=== PATIENT | female | born 1965 | race African-American/Black ===

== ENCOUNTER 2018-01-03 11:20 | Inpatient (IN) | payer OTHER ==
[2018-01-03 13:17] VITALS: BMI 23.3
--- NOTE | 2018-01-03 14:03 | HP ---
CIWA Score - CIWA Score Nausea/Vomitin-Mild Nausea/No Vomiting Muscle Tremors: 4-Moderate,w/Arms Extend Anxiety: 4-Mod. Anxious/Guarded Agitation: 4-Moderately Restless Paroxysmal Sweats: 1-Minimal Palms Moist Orientation: 0-Oriented Tacttile Disturbances: 0-None Auditory Disturbances: 0-None Visual Disturbances: 0-None Headache: 1-Very Mild CIWA-Ar Total Score: 15 Admission ROS BHS - HPI Chief Complaint: withdrawal sx alcohol Allergies/Adverse Reactions: Allergies Allergy/AdvReac Type Severity Reaction Status Date / Time No Known Allergies Allergy Verified 01/03/18 11:55 History of Present Illness: 52 years old female with long history of alcohol nicotine dependence has asthm hiv neuropathy and bipolar iii is admitted to detox Exam Limitations: No Limitations - Ebola screening Have you traveled outside of the country in the last 21 days: No Have you had contact with anyone from an Ebola affected area: No Have you been sick,other than usual withdrawal symptoms: No Do you have a fever: No - Review of Systems Constitutional: Loss of Appetite, Changes in sleep, Unintentional Wgt. Loss, Unexplained wgt Loss EENT: reports: Cataracts (both eyes), Blurred Vision, Nose Congestion Respiratory: reports: SOB with Exertion, Productive cough (yellowish) Cardiac: reports: No Symptoms Reported GI: reports: Nausea, Poor Appetite, Poor Fluid Intake, Abdominal cramping : reports: No Symptoms Reported Musculoskeletal: reports: No Symptoms Reported Integumentary: reports: No Symptoms Reported Neuro: reports: Tremors Endocrine: reports: No Symptoms Reported Hematology: reports: No Symptoms Reported Psychiatric: reports: Judgement Intact, Orientated x3, Anxious, Depressed Other Systems: Reviewed and Negative Patient History - Patient Medical History Hx Anemia: Yes Hx Asthma: Yes Hx Chronic Obstructive Pulmonary Disease (COPD): No Hx Cancer: No Hx Cardiac Disorders: No Hx Congestive Heart Failure: No Hx Hypertension: No Hx Hypercholesterolemia: No Hx Pacemaker: No HX Cerebrovascular Accident: No Hx Seizures: No Hx Dementia: No Hx Diabetes: No Hx Gastrointestinal Disorders: No Hx Liver Disease: No Hx Genitourinary Disorders: No Hx Sexually Transmitted Disorders: Yes (HIV, GONORHEA) Hx Renal Disease (ESRD): No Hx Thyroid Disease: No Hx Human Immunodeficiency Virus (HIV): Yes (on complera last time taken a month ago 1993) Hx Hepatitis C: No Hx Depression: Yes Hx Suicide Attempt: Yes Hx Bipolar Disorder: Yes Hx Schizophrenia: No - Patient Surgical History Past Surgical History: Yes Hx Neurologic Surgery: No Hx Cataract Extraction: No Hx Cardiac Surgery: No Hx Lung Surgery: No Hx Breast Surgery: No Hx Breast Biopsy: No Hx Abdominal Surgery: No Hx Appendectomy: Yes (2001) Hx Cholecystectomy: No Hx Genitourinary Surgery: No Hx Section: No Hx Orthopedic Surgery: No Anesthesia Reaction: No - PPD History Previous Implant?: Yes Documented Results: Negative w/proof Implanted On Prior R Admission?: Yes Date: 06/25/16 Results: NEGATIVE PPD to be Administered?: Yes - Reproductive History Patient is a Female of Child Bearing Age (11 -55 yrs old): Yes Last Menstrual Period: 11/14/17 Patient : No - Smoking Cessation Smoking history: Current every day smoker Have you smoked in the past 12 months: Yes Aproximately how many cigarettes per day: 4 Hx Chewing Tobacco Use: No Initiated information on smoking cessation: Yes 'Breaking Loose' booklet given: 01/03/18 - Substance & Tx. History Hx Alcohol Use: Yes Hx Substance Use: Yes Substance Use Type: Alcohol, Cocaine, Marijuana Hx Substance Use Treatment: Yes (2015) - Substances Abused Alcohol Route: Oral Frequency: Daily Amount used: 1 Pint Vodka, Age of first use: 18 Date of Last Use: 01/03/18 Cocaine Route: Smoking Frequency: Daily Amount used: 25 bags daily ($500) Age of first use: 20 Date of Last Use: 01/03/18 Marijuana/Hashish Route: Smoking Frequency: Daily Amount used: 1/4-1/2 ounces daily Age of first use: 18 Date of Last Use: 01/03/18 Family Disease History - Family Disease History Family Disease History: Heart Disease: Father (), Mother (alive), Other : Sister ( kidney) Admission Physical Exam BHS - Vital Signs Vital Signs: Vital Signs - 24 hr 01/03/18 13:09 Temperature 97.3 F L Pulse Rate 78 Respiratory 20 Rate Blood Pressure 130/100 - Physical General Appearance: Yes: Appropriately Dressed, Mild Distress, Thin, Tremorous, Irritable, Sweating HEENTM: Yes: Hearing grossly Normal, Normocephalic, Normal Voice Respiratory: Yes: Chest Non-Tender, Lungs Clear, Normal Breath Sounds, No Respiratory Distress, No Accessory Muscle Use Neck: Yes: Supple, Trachea in good position Breast: Yes: Breasts Symetrical, No Discharge Cardiology: Yes: Regular Rhythm, Regular Rate, S1, S2 Abdominal: Yes: Normal Bowel Sounds, Non Tender, Flat Genitourinary: Yes: Within Normal Limits Back: Yes: Normal Inspection Musculoskeletal: Yes: full range of Motion, Gait Steady Extremities: Yes: Normal Inspection, Normal Range of Motion, Non-Tender, Tremors Neurological: Yes: Fully Oriented, Alert, Motor Strength 5/5, Normal Response, Depressed Affect Integumentary: Yes: Warm Lymphatic: Yes: Within Normal Limits - Diagnostic (1) Asthma Current Visit: Yes Status: Chronic Qualifiers: Asthma severity: mild Asthma persistence: intermittent Asthma complication type: with status asthmaticus Qualified Code(s): J45.22 - Mild intermittent asthma with status asthmaticus (2) Alcohol dependence with uncomplicated withdrawal Current Visit: Yes Status: Acute (3) HIV disease Current Visit: Yes Status: Chronic Comment: non compliant with medication. no medications with the patient upon admission (4) Nicotine dependence Current Visit: Yes Status: Acute Qualifiers: Nicotine product type: cigarettes Substance use status: in withdrawal Qualified Code(s): F17.213 - Nicotine dependence, cigarettes, with withdrawal Cleared for Admission [facility] - Detox or Rehab [facility] Level of Care: Medically Managed Detox Regimen/Protocol: Librium [facility] Breath Alcohol Content Breath Alcohol Content: 0 Urine Pregancy Test - Result Urine Test Results: Negative- NO Line Present Urine Drug Screen - Results Drug Screen Negative: No Urine Drug Screen Results: THC-Marijuana, FAWN-Cocaine
[2018-01-03] MEDS ORDERED: LOPERAMIDE HCL 2 MG CAPSULE PO PRN (14:05)
[2018-01-03] MEDS ORDERED: IBUPROFEN 400 MG TABLET (FP) PO PRN (14:05)
[2018-01-03] MEDS ORDERED: guaiFENesin/D-METHORPHAN HB 10 ML UNIT-DOSE CUPS PO PRN (14:05)
[2018-01-03] MEDS ORDERED: P-EPHED 60MG/TRIPROLIDI 2.5MG TABLET PO PRN (14:05)
[2018-01-03] MEDS ORDERED: MAGNESIUM CITRATE 300 ML BOTTLE PO PRN (14:05)
[2018-01-03] MEDS ORDERED: MAGNESIUM HYDROX 2400MG/30ML ORAL SUSPENSION 30 ML CUP PO PRN (14:05)
[2018-01-03] MEDS ORDERED: MAG HYDROX/AL HYDROX/SIMETH 30 ML UNIT-DOSE CUP PO PRN (14:05)
[2018-01-03] MEDS ORDERED: NICOTINE POLACRILEX 2 MG GUM BUC PRN (14:05)
[2018-01-03] MEDS ORDERED: ALBUTEROL SO4 18 GM HFA INHALER IH PRN (14:07)
[2018-01-03] MEDS ORDERED: NAPROXEN 500 MG TABLET (FP) PO PRN (14:46)
--- NOTE | 2018-01-03 15:02 | CONSULT ---
[facility] Psychiatric Consult - Data Date of interview: 01/03/18 Admission source: [facility] Identifying data: This is 52 years old AA female, , mother of one, unemployed, living alone, on PA, with psychiatric hospitalization history, seeking for detox,reports withdrawal symptoms, patient with long history of alcohol and nicotine dependence Substance Abuse History: Smoking history: Current every day smoker. Have you smoked in the past 12 months: Yes. Aproximately how many cigarettes per day: 4. Hx Chewing Tobacco Use: No. Initiated information on smoking cessation: Yes. 'Breaking Loose' booklet given: 01/03/18. - Substance & Tx. History. Hx Alcohol Use: Yes. Hx Substance Use: Yes. Substance Use Type: Alcohol, Cocaine , Marijuana. Hx Substance Use Treatment: Yes (2016). - Substances Abused. Alcohol. Route: Oral. Frequency: Daily. Amount used: 1 Pint Vodka,. Age of first use: 18. Date of Last Use: 01/03/18. Cocaine. Route: Smoking. Frequency: Daily. Amount used: 25 bags daily ($500). Age of first use: 20. Date of Last Use: 01/03/18. Marijuana/Hashish. Route: Smoking. Frequency: Daily. Amount used: 1/4-1/2 ounces daily. Age of first use: 18. Date of Last Use: 01/03/18 Medical History: Asthma, HIV+, Psychiatric History: Patient reports ubnclear past psychiatrric history with multiple psychiatric admission, multiple suicidal ideation/attempts history. Most recent admission on 2004 after suicidal attempt by OD, no suicidal history since then. Reports history of Bipola Disorder, reports currently stable on Zyprexa 10mg po qhs Physical/Sexual Abuse/Trauma History: Denies Additional Comment: Zyprexa 10mg po qhs Mental Status Exam - Mental Status Exam Alert and Oriented to: Person Cognitive Function: Fair Patient Appearance: Well Groomed Mood: Anxious Affect: Mood Congruent Patient Behavior: Talkative Speech Pattern: Excessive Voice Loudness: Normal Thought Process: Goal Oriented Thought Disorder: Being Controlled Hallucinations: Denies Suicidal Ideation: Denies Insight/Judgement: Fair Sleep: Difficulty falling asleep Appetite: Weight loss Muscle strength/Tone: Normal Gait/Station: Normal Additional Comments: Zyprexa 10mg po qhs Psychiatric Findings - Problem List ([place] 1, 2,3) (1) Alcohol dependence with uncomplicated withdrawal Current Visit: Yes Status: Acute (2) Nicotine dependence Current Visit: Yes Status: Acute Qualifiers: Nicotine product type: cigarettes Substance use status: in withdrawal Qualified Code(s): F17.213 - Nicotine dependence, cigarettes, with withdrawal (3) Substance induced mood disorder Current Visit: No Status: Acute (4) Cannabis dependence Current Visit: No Status: Chronic (5) Cocaine dependence Current Visit: No Status: Chronic Qualifiers: Substance use status: uncomplicated Qualified Code(s): F14.20 - Cocaine dependence, uncomplicated (6) Crack cocaine use Current Visit: No Status: Chronic (7) Schizoaffective disorder Current Visit: No Status: Chronic Qualifiers: Schizoaffective disorder type: unspecified Qualified Code(s): F25.9 - Schizoaffective disorder, unspecified Comment: Historical diagnosis. - Initial Treatment Plan Initial Treatment Plan: Zyprexa 10mg po qhs
[2018-01-03] MEDS: NICOTINE 14 MG/24 HOURS TOPICAL PATCH TD SCH (15:35)
[2018-01-03] MEDS: chlordiazePOXIDE HCL 25 MG CAPSULE PO PRN (15:36)
--- NOTE | 2018-01-03 16:12 | EKG ---
Test Reason : Blood Pressure : / mmHG Vent. Rate : 068 BPM Atrial Rate : 068 BPM P-R Int : 146 ms QRS Dur : 086 ms QT Int : 452 ms P-R-T Axes : 053 059 060 degrees QTc Int : 480 ms NORMAL SINUS RHYTHM PROLONGED QT ABNORMAL ECG NO PREVIOUS ECGS AVAILABLE Confirmed by JARVIS SINGH, FERNANDO ([id number]) on 01/03/2018 4:12:04 PM Referred By: Confirmed By:FERNANDO CONLEY MD
[2018-01-03 17:55] LABS: URINE APPEARANCE SLCLOUDY; URINE BILIRUBIN NEGATIVE (<2.0 mg/dL); URINE COLOR YELLOW; URINE GLUCOSE (UA) NEGATIVE (NEGATIVE); URINE KETONE NEGATIVE (NEGATIVE); URINE LEUK ESTERASE NEGATIVE (NEGATIVE); URINE NITRITE NEGATIVE (NEGATIVE)
[2018-01-03 17:58] LABS: URINE PROTEIN 2+ (NEGATIVE)
[2018-01-03 18:01] LABS: EPI CELLS RARE /HPF (FEW); URINE MUCUS RARE
[2018-01-03] MEDS ORDERED: MELATONIN 5 MG TABLETS PO PRN (22:00)
[2018-01-03] MEDS: OLANZapine 10 MG TABLET PO SCH (22:32)
[2018-01-03] MEDS: THIAMINE HCL 100 MG TABLET (FP) PO SCH (22:32)
[2018-01-03] MEDS: chlordiazePOXIDE HCL 25 MG CAPSULE PO SCH (22:32)
[2018-01-03] MEDS: GABAPENTIN 300 MG CAPSULE (FP) PO SCH (22:32)
[2018-01-04] MEDS: chlordiazePOXIDE HCL 25 MG CAPSULE PO SCH ×5 (07:05→23:06)
[2018-01-04 10:23] LABS: ANION GAP 10 (8-16); BLOOD UREA NITROGEN 15 mg/dL (7-18); CALCIUM 9.8 mg/dL (8.5-10.1); CHLORIDE 101 mmol/L (98-107); CO2 30 mmol/L (21-32); GLUCOSE,RANDOM 63 mg/dL (74-106); POTASSIUM 3.7 mmol/L (3.5-5.1); SGOT/AST 90 U/L (15-37); SODIUM 141 mmol/L (136-145)
[2018-01-04 10:25] LABS: ALK PHOS 96 U/L (45-117); BILIRUBIN,TOTAL 0.4 mg/dL (0.2-1.0); CREATININE 0.8 mg/dL (0.55-1.02); HEMATOCRIT 40.2 % (32.4-45.2); HEMOGLOBIN 13.2 GM/dL (10.7-15.3); MCH 30.1 pg (25.7-33.7); MCHC 32.9 g/dl (32.0-36.0); MEAN CELL VOLUME 91.4 fl (80-96); PLATELET COUNT 196 K/MM3 (134-434); RDW 16.5 % (11.6-15.6); SGPT/ALT 40 U/L (12-78); TOT PROT 9.3 g/dl (6.4-8.2); WHITE BLOOD COUNT 8.4 K/mm3 (4.0-10.0)
[2018-01-04] MEDS: PRENATAL VITAMINS W/ FOLIC ACID TABLET (FP) PO SCH (11:03)
[2018-01-04] MEDS: GABAPENTIN 300 MG CAPSULE (FP) PO SCH ×2 (11:03→23:06)
[2018-01-04] MEDS: NICOTINE 14 MG/24 HOURS TOPICAL PATCH TD SCH (11:04)
[2018-01-04] MEDS ORDERED: chlordiazePOXIDE HCL 25 MG CAPSULE PO SCH (12:11)
--- NOTE | 2018-01-04 12:18 | PN ---
S CIWA - CIWA Score Nausea/Vomitin-Mild Nausea/No Vomiting Muscle Tremors: 3 Anxiety: 3 Agitation: 3 Paroxysmal Sweats: 1-Minimal Palms Moist Orientation: 0-Oriented Tacttile Disturbances: 1-Very Mild Itch/Numbness Auditory Disturbances: 0-None Visual Disturbances: 0-None Headache: 1-Very Mild CIWA-Ar Total Score: 13 BHS Progress Note (SOAP) Subjective: sweat tremor anxiety restlessness trouble sleep at night stated that 50 mg librium "too heavy" I feel dizzy Objective: 01/04/18 12:14 Vital Signs Temperature 97.7 F 01/04/18 09:27 Pulse Rate 80 01/04/18 09:27 Respiratory Rate 20 01/04/18 09:27 Blood Pressure 132/57 01/04/18 09:27 O2 Sat by Pulse Oximetry (%) Laboratory Last Values WBC 8.4 K/mm3 (4.0-10.0) D 01/04/18 05:45 RBC 4.40 M/mm3 (3.60-5.2) 01/04/18 05:45 Hgb 13.2 GM/dL (10.7-15.3) 01/04/18 05:45 Hct 40.2 % (32.4-45.2) 01/04/18 05:45 MCV 91.4 fl (80-96) 01/04/18 05:45 MCH 30.1 pg (25.7-33.7) 01/04/18 05:45 MCHC 32.9 g/dl (32.0-36.0) 01/04/18 05:45 RDW 16.5 % (11.6-15.6) H D 01/04/18 05:45 Plt Count 196 K/MM3 (134-434) 01/04/18 05:45 MPV 12.0 fl (7.5-11.1) H 01/04/18 05:45 Sodium 141 mmol/L (136-145) 01/04/18 05:45 Potassium 3.7 mmol/L (3.5-5.1) 01/04/18 05:45 Chloride 101 mmol/L (98-107) 01/04/18 05:45 Carbon Dioxide 30 mmol/L (21-32) 01/04/18 05:45 Anion Gap 10 (8-16) 01/04/18 05:45 BUN 15 mg/dL (7-18) 01/04/18 05:45 Creatinine 0.8 mg/dL (0.55-1.02) 01/04/18 05:45 Creat Clearance w eGFR > 60 (>60) 01/04/18 05:45 Random Glucose 63 mg/dL (74-106) L 01/04/18 05:45 Calcium 9.8 mg/dL (8.5-10.1) 01/04/18 05:45 Total Bilirubin 0.4 mg/dL (0.2-1.0) D 01/04/18 05:45 AST 90 U/L (15-37) H 01/04/18 05:45 ALT 40 U/L (12-78) 01/04/18 05:45 Alkaline Phosphatase 96 U/L (45-117) 01/04/18 05:45 Total Protein 9.3 g/dl (6.4-8.2) H 01/04/18 05:45 Albumin 4.0 g/dl (3.4-5.0) 01/04/18 05:45 Urine Color Yellow 01/03/18 15:47 Urine Appearance Slcloudy 01/03/18 15:47 Urine pH 6.0 (5.0-8.0) 01/03/18 15:47 Ur Specific [place] 1.014 (1.001-1.035) 01/03/18 15:47 Urine Protein 2+ (NEGATIVE) H 01/03/18 15:47 Urine Glucose (UA) Negative (NEGATIVE) 01/03/18 15:47 Urine Ketones Negative (NEGATIVE) 01/03/18 15:47 Urine Blood Negative (NEGATIVE) 01/03/18 15:47 Urine Nitrite Negative (NEGATIVE) 01/03/18 15:47 Urine Bilirubin Negative (<2.0 mg/dL) 01/03/18 15:47 Urine Urobilinogen 2.0 mg/dL (0.2-1.0) H 01/03/18 15:47 Ur Leukocyte Esterase Negative (NEGATIVE) 01/03/18 15:47 Urine WBC (Auto) 8 /hpf (3-5) 01/03/18 15:47 Urine RBC (Auto) 4 /hpf (0-3) 01/03/18 15:47 Ur Epithelial Cells Rare /HPF (FEW) 01/03/18 15:47 Urine Mucus Rare 01/03/18 15:47 RPR Titer Nonreactive (NONREACTIVE) 01/04/18 05:45 lab noted 01/04/18 12:16 alert oriented x 3 steady gait Assessment: 01/04/18 12:15 withdrawal sx 01/04/18 12:16 dizzy from librium 50 Plan: continue detox modify librium 25 mg increase oral fluid
[2018-01-04] MEDS ORDERED: chlordiazePOXIDE 5 MG CAPSULE PO SCH (17:36)
[2018-01-04] MEDS: THIAMINE HCL 100 MG TABLET (FP) PO SCH (23:06)
[2018-01-04] MEDS: OLANZapine 10 MG TABLET PO SCH (23:06)
[2018-01-04] MEDS: MENTHOL/PHENOL 1 EACH UD MM PRN (23:57)
[2018-01-05] MEDS: ACETAMINOPHEN 325 MG TABLET (FP) PO PRN ×2 (00:12→15:35)
[2018-01-05] MEDS: MENTHOL/PHENOL 1 EACH UD MM PRN (03:16)
[2018-01-05] MEDS: CLOTRIMAZOLE 10 MG TROCHE (FP) PO SCH ×6 (05:10→23:43)
[2018-01-05] MEDS: chlordiazePOXIDE HCL 25 MG CAPSULE PO SCH ×3 (05:12→17:52)
[2018-01-05] MEDS: PRENATAL VITAMINS W/ FOLIC ACID TABLET (FP) PO SCH (10:37)
[2018-01-05] MEDS: NICOTINE 14 MG/24 HOURS TOPICAL PATCH TD SCH (10:37)
[2018-01-05] MEDS: GABAPENTIN 300 MG CAPSULE (FP) PO SCH ×3 (10:37→23:44)
[2018-01-05] MEDS: LIDOCAINE VISCOUS 2% ORAL/TOP 100 ML BOTTLE MM PRN ×2 (15:39→23:50)
--- NOTE | 2018-01-05 16:34 | PN ---
S CIWA - CIWA Score Nausea/Vomitin Muscle Tremors: 3 Anxiety: 3 Agitation: 2 Paroxysmal Sweats: 1-Minimal Palms Moist Orientation: 0-Oriented Tacttile Disturbances: 1-Very Mild Itch/Numbness Auditory Disturbances: 1-Very Mild Visual Disturbances: 0-None Headache: 2-Mild CIWA-Ar Total Score: 16 S Progress Note (SOAP) Subjective: ALERT,IRRITABLE,ANXIOUS,ORAL PAIN,TREMOR,PAIN IN THE BODY,PAIN IN BOTH EARS, PAINFUL ON SWALLOWING Objective: 01/05/18 16:28 Vital Signs Temperature 97.1 F L 01/05/18 14:00 Pulse Rate 85 01/05/18 14:00 Respiratory Rate 16 01/05/18 14:00 Blood Pressure 147/69 01/05/18 14:00 O2 Sat by Pulse Oximetry (%) EKG NSR PROLONG QT 452/480 NO CHEST PAIN,NO SOB,NO DIZZINESS 01/05/18 16:30 Laboratory Last Values WBC 8.4 K/mm3 (4.0-10.0) D 01/04/18 05:45 RBC 4.40 M/mm3 (3.60-5.2) 01/04/18 05:45 Hgb 13.2 GM/dL (10.7-15.3) 01/04/18 05:45 Hct 40.2 % (32.4-45.2) 01/04/18 05:45 MCV 91.4 fl (80-96) 01/04/18 05:45 MCH 30.1 pg (25.7-33.7) 01/04/18 05:45 MCHC 32.9 g/dl (32.0-36.0) 01/04/18 05:45 RDW 16.5 % (11.6-15.6) H D 01/04/18 05:45 Plt Count 196 K/MM3 (134-434) 01/04/18 05:45 MPV 12.0 fl (7.5-11.1) H 01/04/18 05:45 Sodium 141 mmol/L (136-145) 01/04/18 05:45 Potassium 3.7 mmol/L (3.5-5.1) 01/04/18 05:45 Chloride 101 mmol/L (98-107) 01/04/18 05:45 Carbon Dioxide 30 mmol/L (21-32) 01/04/18 05:45 Anion Gap 10 (8-16) 01/04/18 05:45 BUN 15 mg/dL (7-18) 01/04/18 05:45 Creatinine 0.8 mg/dL (0.55-1.02) 01/04/18 05:45 Creat Clearance w eGFR > 60 (>60) 01/04/18 05:45 Random Glucose 63 mg/dL (74-106) L 01/04/18 05:45 Calcium 9.8 mg/dL (8.5-10.1) 01/04/18 05:45 Total Bilirubin 0.4 mg/dL (0.2-1.0) D 01/04/18 05:45 AST 90 U/L (15-37) H 01/04/18 05:45 ALT 40 U/L (12-78) 01/04/18 05:45 Alkaline Phosphatase 96 U/L (45-117) 01/04/18 05:45 Total Protein 9.3 g/dl (6.4-8.2) H 01/04/18 05:45 Albumin 4.0 g/dl (3.4-5.0) 01/04/18 05:45 Urine Color Yellow 01/03/18 15:47 Urine Appearance Slcloudy 01/03/18 15:47 Urine pH 6.0 (5.0-8.0) 01/03/18 15:47 Ur Specific [place] 1.014 (1.001-1.035) 01/03/18 15:47 Urine Protein 2+ (NEGATIVE) H 01/03/18 15:47 Urine Glucose (UA) Negative (NEGATIVE) 01/03/18 15:47 Urine Ketones Negative (NEGATIVE) 01/03/18 15:47 Urine Blood Negative (NEGATIVE) 01/03/18 15:47 Urine Nitrite Negative (NEGATIVE) 01/03/18 15:47 Urine Bilirubin Negative (<2.0 mg/dL) 01/03/18 15:47 Urine Urobilinogen 2.0 mg/dL (0.2-1.0) H 01/03/18 15:47 Ur Leukocyte Esterase Negative (NEGATIVE) 01/03/18 15:47 Urine WBC (Auto) 8 /hpf (3-5) 01/03/18 15:47 Urine RBC (Auto) 4 /hpf (0-3) 01/03/18 15:47 Ur Epithelial Cells Rare /HPF (FEW) 01/03/18 15:47 Urine Mucus Rare 01/03/18 15:47 RPR Titer Nonreactive (NONREACTIVE) 01/04/18 05:45 Assessment: 01/05/18 16:31 WITHDRAWAL SYMPTOM 01/05/18 16:31 OTITIS EXTERNA BOTH EARS OROPARYNGEAL CANDIDIASIS Plan: CONTINUE DETOX,BACTRIM DS 1 TAB PO BID,MYCELEX X5 PER DAY,XYLOCIAINE ORAL, CORTISPORIN OTIC SUSP
[2018-01-05] MEDS: IBUPROFEN 400 MG TABLET (FP) PO PRN (18:43)
[2018-01-05] MEDS: chlordiazePOXIDE HCL 25 MG CAPSULE PO PRN (18:44)
[2018-01-05] MEDS: NEOMYCIN/POLYMYXN/HC OTIC SUSPENSION 10 ML BOTTLE AU SCH ×2 (20:37→23:43)
[2018-01-05] MEDS: THIAMINE HCL 100 MG TABLET (FP) PO SCH (23:26)
[2018-01-05] MEDS: SULFAMETHOXAZOLE/TRIMETHOPRIM 800MG/160MG D.S. TABLET PO SCH ×2 (23:26→23:43)
[2018-01-05] MEDS: OLANZapine 10 MG TABLET PO SCH (23:44)
[2018-01-05] MEDS: chlordiazePOXIDE 5 MG CAPSULE PO SCH (23:44)
[2018-01-06] MEDS: THIAMINE HCL 100 MG TABLET (FP) PO SCH ×2 (00:26→22:29)
[2018-01-06] MEDS: IBUPROFEN 400 MG TABLET (FP) PO PRN ×2 (02:41→17:41)
[2018-01-06] MEDS: chlordiazePOXIDE HCL 25 MG CAPSULE PO PRN (02:41)
[2018-01-06] MEDS: CLOTRIMAZOLE 10 MG TROCHE (FP) PO SCH ×6 (06:07→22:31)
[2018-01-06] MEDS: chlordiazePOXIDE 5 MG CAPSULE PO SCH ×3 (06:07→17:43)
[2018-01-06] MEDS: NEOMYCIN/POLYMYXN/HC OTIC SUSPENSION 10 ML BOTTLE AU SCH ×4 (06:08→23:08)
[2018-01-06] MEDS: PRENATAL VITAMINS W/ FOLIC ACID TABLET (FP) PO SCH (10:28)
[2018-01-06] MEDS: SULFAMETHOXAZOLE/TRIMETHOPRIM 800MG/160MG D.S. TABLET PO SCH ×2 (10:28→22:29)
[2018-01-06] MEDS: GABAPENTIN 300 MG CAPSULE (FP) PO SCH ×2 (10:28→22:29)
[2018-01-06] MEDS: NICOTINE 14 MG/24 HOURS TOPICAL PATCH TD SCH (10:28)
[2018-01-06] MEDS: NYSTATIN 500,000 UNITS/5 ML SUSPENSION PO SCH ×3 (13:42→23:08)
--- NOTE | 2018-01-06 17:22 | PN ---
BHS Progress Note (SOAP) Subjective: Anxious, restless, agitated, sweating; c/o sore throat, ear pain and thrush on tongue Objective: 01/06/18 17:18 Last Vital Signs Temp Pulse Resp BP Pulse Ox 98.1 F 91 H 18 155/84 01/06/18 14:00 01/06/18 14:00 01/06/18 14:00 01/06/18 14:00 PE: Mouth: moist mucous membrane, thrush on tongue, tongue midline, small papules upper palate, moderate pharyngeal erythema Patient stated her ears was already examined Laboratory Tests 01/03/18 01/04/18 01/04/18 15:47 05:45 05:45 WBC 8.4 D RBC 4.40 Hgb 13.2 Hct 40.2 MCV 91.4 MCH 30.1 MCHC 32.9 RDW 16.5 H D Plt Count 196 MPV 12.0 H Sodium 141 Potassium 3.7 Chloride 101 Carbon Dioxide 30 Anion Gap 10 BUN 15 Creatinine 0.8 Creat Clearance w eGFR > 60 Random Glucose 63 L Calcium 9.8 Total Bilirubin 0.4 D AST 90 H ALT 40 Alkaline Phosphatase 96 Total Protein 9.3 H Albumin 4.0 Urine Color Yellow Urine Appearance Slcloudy Urine pH 6.0 Ur Specific [place] 1.014 Urine Protein 2+ H Urine Glucose (UA) Negative Urine Ketones Negative Urine Blood Negative Urine Nitrite Negative Urine Bilirubin Negative Urine Urobilinogen 2.0 H Ur Leukocyte Esterase Negative Urine WBC (Auto) 8 Urine RBC (Auto) 4 Ur Epithelial Cells Rare Urine Mucus Rare RPR Titer 01/04/18 05:45 WBC RBC Hgb Hct MCV MCH MCHC RDW Plt Count MPV Sodium Potassium Chloride Carbon Dioxide Anion Gap BUN Creatinine Creat Clearance w eGFR Random Glucose Calcium Total Bilirubin AST ALT Alkaline Phosphatase Total Protein Albumin Urine Color Urine Appearance Urine pH Ur Specific [place] Urine Protein Urine Glucose (UA) Urine Ketones Urine Blood Urine Nitrite Urine Bilirubin Urine Urobilinogen Ur Leukocyte Esterase Urine WBC (Auto) Urine RBC (Auto) Ur Epithelial Cells Urine Mucus RPR Titer Nonreactive Labs reviewed: abnormal UA Assessment: 01/06/18 17:20 Withdrawal symptoms Plan: Continue detox Abnormal UA: encouraged PO hydration, repeat UA Oral candidiasis secondary to HIV: nystatin suspension, continue present regimen Already on antibiotic for AOM
[2018-01-06] MEDS: LIDOCAINE VISCOUS 2% ORAL/TOP 100 ML BOTTLE MM PRN (18:12)
[2018-01-06] MEDS ORDERED: FLUCONAZOLE 100 MG TABLET (UD) PO ONE (21:10)
--- NOTE | 2018-01-06 21:21 | PN ---
[facility] Progress Note Note: patietn c/o oral thrush since 1 day prior to admission, nystatin and lonzenges ineffective.did not bring hIV meds with her and has not has since admission. a/p: 1. oral thrush - start diflucan 200mg c1 dose now then 00mg daily, d/c lidocaine , cont lozenge. 2. d/c in AM - patit should go home and pik up HIV meds. before rehab if possible.
[2018-01-06] MEDS: PANTOPRAZOLE 40 MG TABLET (FP) PO SCH (22:29)
[2018-01-06] MEDS: NAPROXEN 500 MG TABLET (FP) PO SCH (22:29)
[2018-01-06] MEDS: chlordiazePOXIDE HCL 10 MG CAPSULE PO SCH (22:29)
[2018-01-06] MEDS: OLANZapine 10 MG TABLET PO SCH (22:29)
[2018-01-07] MEDS: ACETAMINOPHEN 325 MG TABLET (FP) PO PRN (01:32)
[2018-01-07] MEDS: chlordiazePOXIDE HCL 10 MG CAPSULE PO SCH ×2 (06:27→11:21)
[2018-01-07] MEDS: NEOMYCIN/POLYMYXN/HC OTIC SUSPENSION 10 ML BOTTLE AU SCH (06:28)
[2018-01-07] MEDS: GABAPENTIN 300 MG CAPSULE (FP) PO SCH (06:29)
[2018-01-07] MEDS: NYSTATIN 500,000 UNITS/5 ML SUSPENSION PO SCH (06:29)
[2018-01-07] MEDS: CLOTRIMAZOLE 10 MG TROCHE (FP) PO SCH ×2 (06:29→11:21)
--- NOTE | 2018-01-07 08:53 | DS ---
[facility] Detox Discharge Summary Admission Date: 01/03/18 Discharge Date: 01/07/18 - History Present History: Alcohol Dependence - Physical Exam Results Vital Signs: Vital Signs Temperature 98.2 F 01/07/18 08:09 Pulse Rate 92 H 01/07/18 08:09 Respiratory Rate 20 01/07/18 08:09 Blood Pressure 106/66 01/07/18 08:09 O2 Sat by Pulse Oximetry (%) Pertinent Admission Physical Exam Findings: 52 years old female admitted on 01/03/18 for alcohol withdrawal sx completed alcohol detox regimen tolerated well denies alcohol withdrawal sx alert oriented x 3 no acute distress, patient agrees [facility] picker ART from home for 14-28 days [facility] teaching on oral thresh self management and preventive measure such as asthma medication device cleaning withdrawal sx Vital Signs Temperature 98.2 F 01/07/18 08:09 Pulse Rate 92 H 01/07/18 08:09 Respiratory Rate 20 01/07/18 08:09 Blood Pressure 106/66 01/07/18 08:09 O2 Sat by Pulse Oximetry (%) Laboratory Last Values WBC 8.4 K/mm3 (4.0-10.0) D 01/04/18 05:45 RBC 4.40 M/mm3 (3.60-5.2) 01/04/18 05:45 Hgb 13.2 GM/dL (10.7-15.3) 01/04/18 05:45 Hct 40.2 % (32.4-45.2) 01/04/18 05:45 MCV 91.4 fl (80-96) 01/04/18 05:45 MCH 30.1 pg (25.7-33.7) 01/04/18 05:45 MCHC 32.9 g/dl (32.0-36.0) 01/04/18 05:45 RDW 16.5 % (11.6-15.6) H D 01/04/18 05:45 Plt Count 196 K/MM3 (134-434) 01/04/18 05:45 MPV 12.0 fl (7.5-11.1) H 01/04/18 05:45 Sodium 141 mmol/L (136-145) 01/04/18 05:45 Potassium 3.7 mmol/L (3.5-5.1) 01/04/18 05:45 Chloride 101 mmol/L (98-107) 01/04/18 05:45 Carbon Dioxide 30 mmol/L (21-32) 01/04/18 05:45 Anion Gap 10 (8-16) 01/04/18 05:45 BUN 15 mg/dL (7-18) 01/04/18 05:45 Creatinine 0.8 mg/dL (0.55-1.02) 01/04/18 05:45 Creat Clearance w eGFR > 60 (>60) 01/04/18 05:45 Random Glucose 63 mg/dL (74-106) L 01/04/18 05:45 Calcium 9.8 mg/dL (8.5-10.1) 01/04/18 05:45 Total Bilirubin 0.4 mg/dL (0.2-1.0) D 01/04/18 05:45 AST 90 U/L (15-37) H 01/04/18 05:45 ALT 40 U/L (12-78) 01/04/18 05:45 Alkaline Phosphatase 96 U/L (45-117) 01/04/18 05:45 Total Protein 9.3 g/dl (6.4-8.2) H 01/04/18 05:45 Albumin 4.0 g/dl (3.4-5.0) 01/04/18 05:45 Urine Color Yellow 01/03/18 15:47 Urine Appearance Slcloudy 01/03/18 15:47 Urine pH 6.0 (5.0-8.0) 01/03/18 15:47 Ur Specific [place] 1.014 (1.001-1.035) 01/03/18 15:47 Urine Protein 2+ (NEGATIVE) H 01/03/18 15:47 Urine Glucose (UA) Negative (NEGATIVE) 01/03/18 15:47 Urine Ketones Negative (NEGATIVE) 01/03/18 15:47 Urine Blood Negative (NEGATIVE) 01/03/18 15:47 Urine Nitrite Negative (NEGATIVE) 01/03/18 15:47 Urine Bilirubin Negative (<2.0 mg/dL) 01/03/18 15:47 Urine Urobilinogen 2.0 mg/dL (0.2-1.0) H 01/03/18 15:47 Ur Leukocyte Esterase Negative (NEGATIVE) 01/03/18 15:47 Urine WBC (Auto) 8 /hpf (3-5) 01/03/18 15:47 Urine RBC (Auto) 4 /hpf (0-3) 01/03/18 15:47 Ur Epithelial Cells Rare /HPF (FEW) 01/03/18 15:47 Urine Mucus Rare 01/03/18 15:47 RPR Titer Nonreactive (NONREACTIVE) 01/04/18 05:45 lab noted - Treatment Hospital Course: Detox Protocol Followed, Detoxed Safely, Responded well, Discharged Condition Good, Rehab Referral Accepted Patient has Accepted a Rehab Referral to: [facility] - Medication Discharge Medications: Ambulatory Orders Gabapentin [Neurontin -] 300 mg PO BID 01/03/18 Olanzapine 10 mg PO HS #30 tablet 01/03/18 Albuterol Sulfate Inhaler - [Ventolin HFA Inhaler -] 2 puff IH Q4H PRN #1 inhaler 01/06/18 Emtricitab/Rilpivirine/Tenofov [Complera Tablet -] 1 each PO DAILY #30 tablet Fluconazole [Diflucan -] 100 mg PO DAILY 10 Days tablet MDD 1 01/06/18 Fluticasone/Salmeterol [Advair 250-50 Diskus] 1 each IH BID #1 disk.w.dev - Diagnosis (1) Asthma Current Visit: Yes Status: Chronic Qualifiers: Asthma severity: mild Asthma persistence: intermittent Asthma complication type: with status asthmaticus Qualified Code(s): J45.22 - Mild intermittent asthma with status asthmaticus (2) Alcohol dependence with uncomplicated withdrawal Current Visit: Yes Status: Acute (3) HIV disease Current Visit: Yes Status: Chronic (4) Nicotine dependence Current Visit: Yes Status: Chronic Qualifiers: Nicotine product type: cigarettes Substance use status: in withdrawal Qualified Code(s): F17.213 - Nicotine dependence, cigarettes, with withdrawal - AMA Did Patient Leave Against Medical Advice: No
[2018-01-07] MEDS ORDERED: FLUCONAZOLE 100 MG TABLET (UD) PO SCH (10:00)
[2018-01-07 10:25] VITALS: BP 125/78; PULSE 95; TEMP 97.9
[2018-01-07] MEDS: SULFAMETHOXAZOLE/TRIMETHOPRIM 800MG/160MG D.S. TABLET PO SCH (11:21)
[2018-01-07] MEDS: PANTOPRAZOLE 40 MG TABLET (FP) PO SCH (11:22)
[2018-01-07] MEDS: NAPROXEN 500 MG TABLET (FP) PO SCH (11:22)
[2018-01-07] MEDS: PRENATAL VITAMINS W/ FOLIC ACID TABLET (FP) PO SCH (11:22)
[2018-01-07] MEDS: NICOTINE 14 MG/24 HOURS TOPICAL PATCH TD SCH (11:24)
== END 2018-01-07 12:01 | disposition home or self-care (01) | DRG 774 ==
LOC: YASAS 11:20 → Y6N 14:33
PROVIDERS: ADMIT Surgery; ATTEND Surgery
PROC: HZ2ZZZZ Detoxification Services for Substance Abuse Treatment (ICD-10-PCS; principal; 2018-01-03)
DX: F10.230 Alcohol dependence with withdrawal, uncomplicated (principal); F14.20 Cocaine dependence, uncomplicated; F12.20 Cannabis dependence, uncomplicated; F17.213 Nicotine dependence, cigarettes, with withdrawal; F31.9 Bipolar disorder, unspecified; F25.9 Schizoaffective disorder, unspecified; F19.24 Other psychoactive substance dependence with psychoactive substance-induced mood disorder; Z21 Asymptomatic human immunodeficiency virus [HIV] infection status; J45.22 Mild intermittent asthma with status asthmaticus; B37.0 Candidal stomatitis; Z86.19 Personal history of other infectious and parasitic diseases; Z91.5 Personal history of self-harm
CPT/HCPCS: 36415; 80053; 81003; 81015; 85027; 86593; 93005; 93010

== ENCOUNTER 2018-07-10 14:35 | Inpatient (IN) | payer OTHER ==
[2018-07-10 16:01] VITALS: BMI 27.3
--- NOTE | 2018-07-10 20:00 | HP ---
"CIWA Score Nausea/Vomitin-No Nausea/No Vomiting Muscle Tremors: 4-Moderate,w/Arms Extend Anxiety: 4-Mod. Anxious/Guarded Agitation: 4-Moderately Restless Paroxysmal Sweats: 1-Minimal Palms Moist Orientation: 0-Oriented Tacttile Disturbances: 0-None Auditory Disturbances: 0-None Visual Disturbances: 0-None Headache: 2-Mild CIWA-Ar Total Score: 15 - Admission Criteria OASAS Guidelines: Admission for Medically Managed Detox: Requires at least one of the followin. CIWA greater than 12 2. Seizures within the past 24 hours 3. Delirium tremens within the past 24 hours 4. Hallucinations within the past 24 hours 5. Acute intervention needed for co occurring medical disorder 6. Acute intervention needed for co occurring psychiatric disorder 7. Severe withdrawal that cannot be handled at a lower level of care (continued vomiting, continued diarrhea, abnormal vital signs) requiring intravenous medication and/or fluids 8. Patient presents the following: CIWA greater than 12 Admission Criteria Met: Admission criteria met Admission ROS [facility] Chief Complaint: Here for alcohol withdrawal. Allergies/Adverse Reactions: Allergies Allergy/AdvReac Type Severity Reaction Status Date / Time No Known Allergies Allergy Verified 07/10/18 18:22 History of Present Illness: Alcohol use since age 18. Nicotine use since age 19. Denies hx seizures, blackouts, overdose. States longest sobriety is 4 years. Hx numbness, swelling and burning in both legs x years. States on neurontin for this. States HIV (+) on meds - last took 3 days ago. Hx asthma - last exacerbation 1 year ago. Hx Heart Murmur. States has a hx irregular heart beat. Denies chest pain, SOB, SD. Hx Syphilis - states rx'd years ago - last RPR's at [facility] w/o indication of previous infection.. Chronic LBP w/ spasms - rx'd in past w/ flexeril w/ relief. Hx depression / mental health issues and on medications. Denies thoughts of harming self or others. Search Terms: Lit Seth, 1965 Search Date: 07/10/2018 10:58:04 PM The Drug Utilization Report below displays all of the controlled substance prescriptions, if any, that your patient has filled in the last twelve months. The information displayed on this report is compiled from pharmacy submissions to the Department, and accurately reflects the information as submitted by the pharmacies. This report was requested by: Joyce Wong | Reference #: [id number] Others' Prescriptions Patient Name: Lit Seth Date: 1965 Address: [address] [place] [address] [address] Sex: Female Rx Written Rx Dispensed Drug Quantity Days Supply Prescriber Name 04/15/2018 04/15/2018 alprazolam 1 mg tablet 30 30 Marvin Citlali L (STILL TENDER) 03/04/2018 03/06/2018 alprazolam 1 mg tablet 60 30 Tanya Chisholm MD 02/08/2018 02/08/2018 alprazolam 1 mg tablet 90 30 Marvin, Citlali L (STILL TENDER) 01/11/2018 01/14/2018 alprazolam 1 mg tablet 90 30 Marvin Citlali L (STILL TENDER) 12/14/2017 12/14/2017 alprazolam 1 mg tablet 90 30 Marvin, Citlali L (STILL TENDER) 11/05/2017 11/05/2017 alprazolam 1 mg tablet 90 30 Marvin, Citlali L (STILL TENDER) 10/08/2017 10/08/2017 alprazolam 1 mg tablet 60 30 Marvin, Citlali L (STILL TENDER) 09/15/2017 09/17/2017 acetaminophen-cod #3 tablet 20 6 Gen Maxwell 09/07/2017 09/07/2017 alprazolam 1 mg tablet 60 30 Marvin, Citlali L (STILL TENDER) 08/06/2017 08/06/2017 alprazolam 1 mg tablet 90 30 Marvin Citlali L (STILL TENDER) Patient Name: Lit Seth Date: 1965 [address]: [address] [place] [id number] Sex: Female Rx Written Rx Dispensed Drug Quantity Days Supply Prescriber Name 01/11/2018 01/24/2018 endocet 5-325 tablet 10 4 Conor Wilkes MD Exam Limitations: No Limitations - Ebola screening Have you traveled outside of the country in the last 21 days: No Have you had contact with anyone from an Ebola affected area: No Have you been sick,other than usual withdrawal symptoms: No Do you have a fever: No - Review of Systems Constitutional: Diaphoresis, Changes in sleep (Difficulty staying asleep x years ) EENT: reports: Cataracts (Bilateral), Blurred Vision, Nose Congestion (Hx sinus problems.), Dental Problems (cavities. Chews and swallows ok.) Respiratory: reports: No Symptoms reported Cardiac: reports: Irregular Heart Rate, Other (Hx Murmur) GI: reports: No Symptoms Reported : reports: No Symptoms Reported Musculoskeletal: reports: Back Pain (Chronic back pain. Increases w/ lifting. Hx muscle spasms. States ok right now.) Integumentary: reports: Lesions (both eye areas x 2-3 days.) Neuro: reports: Headache (Mod), Tremors Endocrine: reports: No Symptoms Reported Hematology: reports: No Symptoms Reported Psychiatric: reports: Judgement Intact, Agitated, Anxious, Depressed (Denies thoughts of harming self or othrs) Patient History - Patient Medical History Hx Anemia: Yes Hx Asthma: Yes Hx Chronic Obstructive Pulmonary Disease (COPD): No Hx Cancer: No Hx Cardiac Disorders: No Hx Congestive Heart Failure: No Hx Hypertension: No Hx Hypercholesterolemia: No Hx Pacemaker: No HX Cerebrovascular Accident: No Hx Seizures: No Hx Dementia: No Hx Diabetes: No Hx Gastrointestinal Disorders: No Hx Liver Disease: No Hx Genitourinary Disorders: No Hx Sexually Transmitted Disorders: Yes (HIV, GONORHEA) Hx Renal Disease (ESRD): No Hx Thyroid Disease: No Hx Human Immunodeficiency Virus (HIV): Yes (on complera last time taken a month ago 1993) Hx Hepatitis C: No Hx Depression: Yes Hx Suicide Attempt: Yes Hx Bipolar Disorder: Yes Hx Schizophrenia: No - Patient Surgical History Past Surgical History: Yes Hx Neurologic Surgery: No Hx Cataract Extraction: No Hx Cardiac Surgery: No Hx Lung Surgery: No Hx Breast Surgery: No Hx Breast Biopsy: No Hx Abdominal Surgery: No Hx Appendectomy: Yes (2001) Hx Cholecystectomy: No Hx Genitourinary Surgery: No Hx Section: No Hx Orthopedic Surgery: No Anesthesia Reaction: No - PPD History Previous Implant?: Yes Documented Results: Negative w/o proof Implanted On Prior [facility]mission?: Yes Date: 01/05/18 Results: NEGATIVE PPD to be Administered?: No - Reproductive History Last Menstrual Period: 05/14/18 (sexually active) Patient : No - Smoking Cessation Smoking history: Current every day smoker Have you smoked in the past 12 months: Yes Aproximately how many cigarettes per day: 4 Hx Chewing Tobacco Use: No Initiated information on smoking cessation: Yes 'Breaking Loose' booklet given: 07/10/18 - Substance & Tx. History Hx Alcohol Use: Yes Hx Substance Use: Yes Substance Use Type: Alcohol, Cocaine Hx Substance Use Treatment: Yes (detox, rehabs) - Substances Abused Alcohol Route: Oral Frequency: Daily Amount used: 1 PINT VODKA Age of first use: 18 Date of Last Use: 07/10/18 Family Disease History - Family Disease History Family Disease History: Heart Disease: Father (), Mother (alive), Other : Sister ( kidney) Admission Physical Exam [facility] - Vital Signs Vital Signs: Vital Signs - 24 hr 07/10/18 15:58 Temperature 98.2 F Pulse Rate 90 Respiratory 18 Rate Blood Pressure 122/63 - Physical General Appearance: Yes: Mild Distress, Tremorous, Irritable, Sweating, Anxious HEENTM: Yes: EOMI, Hearing grossly Normal, Normocephalic, ZAN, Pharynx Normal, Thrush (Whitish patches on tongue and pharynyx.), Other (Small jennifer-orbital open lesions inner aspect both eyes near lacrimal punctum) Respiratory: Yes: Lungs Clear, Normal Breath Sounds, No Respiratory Distress Neck: Yes: No masses,lesions,Nodules, Supple Breast: Yes: Breast Exam Deferred Cardiology: Yes: Regular Rhythm, Regular Rate, S1, S2, Murmur Abdominal: Yes: Non Tender, Soft, Increased Bowel Sounds Genitourinary: Yes: Within Normal Limits Back: Yes: Normal Inspection Musculoskeletal: Yes: full range of Motion, Gait Steady Extremities: Yes: Normal Capillary Refill, Normal Range of Motion, Non-Tender, Tremors (mod tremors of hands upon extension) Neurological: Yes: exhibit carpenter II-XII NML intact, Fully Oriented, Alert, Motor Strength 5/5, Normal Mood/Affect Integumentary: Yes: Normal Color, Dry, Warm Lymphatic: Yes: Within Normal Limits - Diagnostic (1) Alcohol dependence with uncomplicated withdrawal Current Visit: Yes Status: Acute (2) Oropharyngeal candidiasis Current Visit: Yes Status: Acute (3) Asthma Current Visit: Yes Status: Chronic Qualifiers: Asthma severity: mild Asthma persistence: intermittent Asthma complication type: with status asthmaticus Qualified Code(s): J45.22 - Mild intermittent asthma with status asthmaticus (4) Crack cocaine use Current Visit: Yes Status: Chronic (5) HIV disease Current Visit: Yes Status: Chronic Comment: non compliant with medication. no medications with the patient upon admission (6) Nicotine dependence Current Visit: Yes Status: Chronic Qualifiers: Nicotine product type: cigarettes Substance use status: uncomplicated Qualified Code(s): F17.210 - Nicotine dependence, cigarettes, uncomplicated Cleared for Admission [facility] - Detox or Rehab [facility] Level of Care: Medically Managed Detox Regimen/Protocol: Librium S Breath Alcohol Content Breath Alcohol Content: 0 Urine Pregancy Test - Result Urine Test Results: Negative- NO Line Present Urine Drug Screen - Results Drug Screen Negative: Yes"
[2018-07-10] MEDS ORDERED: MAGNESIUM HYDROX 2400MG/30ML ORAL SUSPENSION 30 ML CUP PO PRN (20:35)
[2018-07-10] MEDS ORDERED: MAG HYDROX/AL HYDROX/SIMETH 30 ML UNIT-DOSE CUP PO PRN (20:35)
[2018-07-10] MEDS ORDERED: chlordiazePOXIDE HCL 25 MG CAPSULE PO PRN (20:35)
[2018-07-10] MEDS ORDERED: LOPERAMIDE HCL 2 MG CAPSULE PO PRN (20:35)
[2018-07-10] MEDS ORDERED: MAGNESIUM CITRATE 300 ML BOTTLE PO PRN (20:35)
[2018-07-10] MEDS ORDERED: IBUPROFEN 400 MG TABLET (FP) PO PRN (20:35)
[2018-07-10] MEDS ORDERED: chlordiazePOXIDE HCL 25 MG CAPSULE PO ONE (20:35)
[2018-07-10] MEDS: GABAPENTIN 300 MG CAPSULE (FP) PO SCH (21:45)
[2018-07-10] MEDS: THIAMINE HCL 100 MG TABLET (FP) PO SCH (21:45)
[2018-07-10] MEDS: CYCLOBENZAPRINE HCL 10 MG TABLET (FP) PO PRN (21:45)
[2018-07-10] MEDS: MELATONIN 5 MG TABLETS PO PRN (21:46)
[2018-07-10] MEDS: chlordiazePOXIDE HCL 25 MG CAPSULE PO SCH (22:32)
[2018-07-10] MEDS: ERYTHROMYCIN 0.5% OPHTHALMIC OINTMENT 3.5 GM TUBE OU SCH (23:08)
[2018-07-10] MEDS: CLOTRIMAZOLE 10 MG TROCHE (FP) PO SCH (23:09)
[2018-07-11] MEDS ORDERED: PSEUDOEPHEDRINE HCL 60 MG TABLET PO PRN (00:33)
[2018-07-11 02:57] LABS: URINE APPEARANCE SLCLOUDY; URINE BILIRUBIN NEGATIVE (<2.0 mg/dL); URINE COLOR LTYELLOW; URINE GLUCOSE (UA) NEGATIVE (NEGATIVE); URINE KETONE NEGATIVE (NEGATIVE); URINE LEUK ESTERASE NEGATIVE (NEGATIVE); URINE NITRITE NEGATIVE (NEGATIVE); URINE PROTEIN NEGATIVE (NEGATIVE); URINE UROBILINOGEN NEGATIVE mg/dL (0.2-1.0)
[2018-07-11] MEDS ORDERED: P-EPHED 60MG/TRIPROLIDI 2.5MG TABLET PO PRN (03:43)
[2018-07-11] MEDS ORDERED: guaiFENesin 200 MG/10 ML 10 ML UNIT-DOSE CUPS PO PRN ×2 (03:44→20:56)
[2018-07-11] MEDS: CLOTRIMAZOLE 10 MG TROCHE (FP) PO SCH ×5 (05:01→23:21)
[2018-07-11] MEDS: chlordiazePOXIDE HCL 25 MG CAPSULE PO SCH ×4 (05:01→22:36)
[2018-07-11] MEDS ORDERED: ALBUTEROL SO4 8 GM HFA INHALER IH PRN (05:15)
--- NOTE | 2018-07-11 08:11 | CONSULT ---
[facility] Psychiatric Consult - Data Date of interview: 07/11/18 Admission source: [facility] Identifying data: This is 53 years old female, , mother of one, living with family, on HASSA support, with history of Schizoaffective disorder, PTSD, reports psychiatric hospitalization history, history of suicidal attempt. Patient reports Alcohol, Crack, and Nicotine dependence, reports withdrawal symptoms and seeking for detox. Substance Abuse History: Smoking history: Current every day smoker. Have you smoked in the past 12 months: Yes. Aproximately how many cigarettes per day: 4. Hx Chewing Tobacco Use: No. Initiated information on smoking cessation: Yes. 'Breaking Loose' booklet given: 07/10/18. - Substance & Tx. History. Hx Alcohol Use: Yes. Hx Substance Use: Yes. Substance Use Type: Alcohol, Cocaine. Hx Substance Use Treatment: Yes (detox, rehabs). - Substances Abused. Alcohol. Route: Oral. Frequency: Daily. Amount used: 1 PINT VODKA. Age of first use: 18. Date of Last Use: 07/10/18 Medical History: Asthma, HIV+ history, Otitis externa history, Psychiatric History: Patient reportsm to carry Schizoaffective disorder with pnly psychiatoric hospitalization on about 14 years ago after suicidal attempy by cutting her left wrist, 8-10 stitiches applyed. Patieht reports no suicidal; , homicidal history since then. Reports currently stableon: Zyprexa 10mg po qhs. Gabapentin 300mg po tid Physical/Sexual Abuse/Trauma History: Denies Additional Comment: Zyprexa 10mg po qhs. Gabapentin 300mg po tid Mental Status Exam - Mental Status Exam Alert and Oriented to: Person Patient Appearance: Well Groomed Mood: Apprehensive Affect: Mood Congruent Patient Behavior: Cooperative Speech Pattern: Appropriate Voice Loudness: Normal Thought Process: Goal Oriented Thought Disorder: Being Controlled Hallucinations: Denies Suicidal Ideation: Denies Homicidal Ideation: Denies Insight/Judgement: Fair Sleep: Difficulty falling asleep Appetite: Weight loss Muscle strength/Tone: Normal Gait/Station: Normal Additional Comments: Zyprexa 10mg po qhs. Gabapentin 300mg po tid Psychiatric Findings - Problem List ([place] 1, 2,3) (1) Alcohol dependence with uncomplicated withdrawal Current Visit: Yes Status: Acute (2) Asthma Current Visit: Yes Status: Chronic Qualifiers: Asthma severity: mild Asthma persistence: intermittent Asthma complication type: with status asthmaticus Qualified Code(s): J45.22 - Mild intermittent asthma with status asthmaticus (3) Crack cocaine use Current Visit: Yes Status: Chronic (4) HIV disease Current Visit: Yes Status: Chronic Comment: non compliant with medication. no medications with the patient upon admission (5) Nicotine dependence Current Visit: Yes Status: Chronic Qualifiers: Nicotine product type: cigarettes Substance use status: uncomplicated Qualified Code(s): F17.210 - Nicotine dependence, cigarettes, uncomplicated (6) Otitis externa Current Visit: No Status: Acute (7) Substance induced mood disorder Current Visit: No Status: Acute (8) Cannabis dependence Current Visit: No Status: Chronic (9) Cocaine dependence Current Visit: No Status: Chronic Qualifiers: Substance use status: uncomplicated Qualified Code(s): F14.20 - Cocaine dependence, uncomplicated (10) Schizoaffective disorder Current Visit: No Status: Chronic Qualifiers: Schizoaffective disorder type: unspecified Qualified Code(s): F25.9 - Schizoaffective disorder, unspecified Comment: Historical diagnosis.
[2018-07-11 10:18] LABS: HEMATOCRIT 38.9 % (32.4-45.2); HEMOGLOBIN 12.5 GM/dL (10.7-15.3); MCH 29.8 pg (25.7-33.7); MCHC 32.3 g/dl (32.0-36.0); MEAN CELL VOLUME 92.4 fl (80-96); MEAN PLT VOLUME 11.7 fl (7.5-11.1); PLATELET COUNT 188 K/MM3 (134-434); RBC 4.21 M/mm3 (3.60-5.2); RDW 14.4 % (11.6-15.6); WHITE BLOOD COUNT 8.1 K/mm3 (4.0-10.0)
[2018-07-11] MEDS: ERYTHROMYCIN 0.5% OPHTHALMIC OINTMENT 3.5 GM TUBE OU SCH ×2 (10:29→22:36)
[2018-07-11] MEDS: NICOTINE 7 MG/24 HOURS TOPICAL PATCH TD SCH (10:29)
[2018-07-11] MEDS: PRENATAL VITAMINS W/ FOLIC ACID TABLET (FP) PO SCH (10:29)
[2018-07-11] MEDS: GABAPENTIN 300 MG CAPSULE (FP) PO SCH ×2 (10:29→22:36)
[2018-07-11 10:54] LABS: ALBUMIN 3.6 g/dl (3.4-5.0); ALK PHOS 74 U/L (45-117); ANION GAP 9 MMOL/L (8-16); BILIRUBIN,TOTAL 0.3 mg/dL (0.2-1); BLOOD UREA NITROGEN 14 mg/dL (7-18); CALCIUM 8.9 mg/dL (8.5-10.1); CHLORIDE 103 mmol/L (98-107); CO2 28 mmol/L (21-32); CREATININE 0.8 mg/dL (0.55-1.3); GLUCOSE,RANDOM 110 mg/dL (74-106); POTASSIUM 4.2 mmol/L (3.5-5.1); SGOT/AST 50 U/L (15-37); SGPT/ALT 38 U/L (13-61); SODIUM 140 mmol/L (136-145); TOT PROT 8.7 g/dl (6.4-8.2)
--- NOTE | 2018-07-11 11:33 | PN ---
S CIWA - CIWA Score Nausea/Vomitin-No Nausea/No Vomiting Muscle Tremors: 3 Anxiety: 3 Agitation: 3 Paroxysmal Sweats: 3 Orientation: 0-Oriented Tacttile Disturbances: 0-None Auditory Disturbances: 0-None Visual Disturbances: 0-None Headache: 0-None Present CIWA-Ar Total Score: 12 [facility] Progress Note (SOAP) Subjective: irritable agitation anxiety sweats body aches Objective: 07/11/18 11:33 Vital Signs Temperature 98.6 F 07/11/18 09:36 Pulse Rate 98 H 07/11/18 09:36 Respiratory Rate 18 07/11/18 09:36 Blood Pressure 99/54 L 07/11/18 09:36 O2 Sat by Pulse Oximetry (%) Laboratory Tests 07/11/18 07/11/18 07/11/18 00:03 07:00 07:00 WBC 8.1 RBC 4.21 Hgb 12.5 Hct 38.9 MCV 92.4 MCH 29.8 MCHC 32.3 RDW 14.4 D Plt Count 188 MPV 11.7 H Sodium 140 Potassium 4.2 Chloride 103 Carbon Dioxide 28 Anion Gap 9 BUN 14 Creatinine 0.8 Creat Clearance w eGFR > 60 Random Glucose 110 H Calcium 8.9 Total Bilirubin 0.3 AST 50 H ALT 38 Alkaline Phosphatase 74 Total Protein 8.7 H Albumin 3.6 Urine Color Ltyellow Urine Appearance Slcloudy Urine pH 7.0 Ur Specific [place] 1.009 L Urine Protein Negative Urine Glucose (UA) Negative Urine Ketones Negative Urine Blood Negative Urine Nitrite Negative Urine Bilirubin Negative Urine Urobilinogen Negative Ur Leukocyte Esterase Negative aaox3 ambulating no acute distress Assessment: 07/11/18 11:34 withdrawal sx Plan: continue detox increase fluids
--- NOTE | 2018-07-11 11:55 | EKG ---
Test Reason : Blood Pressure : / mmHG Vent. Rate : 075 BPM Atrial Rate : 075 BPM P-R Int : 142 ms QRS Dur : 076 ms QT Int : 412 ms P-R-T Axes : 054 066 058 degrees QTc Int : 460 ms NORMAL SINUS RHYTHM NORMAL ECG WHEN COMPARED WITH ECG OF 03-JAN-2018 15:23, NONSPECIFIC T WAVE ABNORMALITY NO LONGER EVIDENT IN ANTERIOR LEADS Confirmed by FERNANDO CONLEY MD ([id number]) on 07/11/2018 11:55:27 AM Referred By: Confirmed By:FERNANDO CONLEY MD
[2018-07-11] MEDS: ACETAMINOPHEN 325 MG TABLET (FP) PO PRN (12:10)
[2018-07-11] MEDS: PSEUDOEPHEDRINE HCL 30 MG TABLET PO PRN (20:29)
[2018-07-11] MEDS: CYCLOBENZAPRINE HCL 10 MG TABLET (FP) PO PRN (22:36)
[2018-07-11] MEDS: THIAMINE HCL 100 MG TABLET (FP) PO SCH (22:36)
[2018-07-11] MEDS: OLANZapine 10 MG TABLET PO SCH (22:36)
[2018-07-12] MEDS: CLOTRIMAZOLE 10 MG TROCHE (FP) PO SCH ×5 (06:04→22:26)
[2018-07-12] MEDS: chlordiazePOXIDE HCL 25 MG CAPSULE PO SCH ×3 (06:04→18:29)
[2018-07-12] MEDS: PSEUDOEPHEDRINE HCL 30 MG TABLET PO PRN (06:05)
[2018-07-12] MEDS: guaiFENesin/D-METHORPHAN HB 10 ML UNIT-DOSE CUPS PO PRN (09:26)
[2018-07-12] MEDS: MENTHOL/PHENOL 1 EACH UD MM PRN ×2 (09:27→18:29)
[2018-07-12] MEDS: ERYTHROMYCIN 0.5% OPHTHALMIC OINTMENT 3.5 GM TUBE OU SCH ×2 (10:32→22:27)
[2018-07-12] MEDS: GABAPENTIN 300 MG CAPSULE (FP) PO SCH ×2 (10:32→22:26)
[2018-07-12] MEDS: PRENATAL VITAMINS W/ FOLIC ACID TABLET (FP) PO SCH (10:32)
[2018-07-12] MEDS: NICOTINE 7 MG/24 HOURS TOPICAL PATCH TD SCH (10:33)
--- NOTE | 2018-07-12 11:50 | PN ---
[facility] CIWA - CIWA Score Nausea/Vomitin-No Nausea/No Vomiting Muscle Tremors: 3 Anxiety: 3 Agitation: 3 Paroxysmal Sweats: 2 Orientation: 0-Oriented Tacttile Disturbances: 0-None Auditory Disturbances: 0-None Visual Disturbances: 0-None Headache: 0-None Present CIWA-Ar Total Score: 11 S Progress Note (SOAP) Subjective: nasal congestion sweats anxiety interrupted sleep i need my nicotine patch increased. Objective: 07/12/18 11:49 Vital Signs Temperature 98.4 F 07/12/18 09:38 Pulse Rate 94 H 07/12/18 09:38 Respiratory Rate 18 07/12/18 09:38 Blood Pressure 120/57 L 07/12/18 09:38 O2 Sat by Pulse Oximetry (%) Laboratory Tests 07/11/18 07/11/18 07/11/18 00:03 07:00 07:00 WBC 8.1 RBC 4.21 Hgb 12.5 Hct 38.9 MCV 92.4 MCH 29.8 MCHC 32.3 RDW 14.4 D Plt Count 188 MPV 11.7 H Sodium 140 Potassium 4.2 Chloride 103 Carbon Dioxide 28 Anion Gap 9 BUN 14 Creatinine 0.8 Creat Clearance w eGFR > 60 Random Glucose 110 H Calcium 8.9 Total Bilirubin 0.3 AST 50 H ALT 38 Alkaline Phosphatase 74 Total Protein 8.7 H Albumin 3.6 Urine Color Ltyellow Urine Appearance Slcloudy Urine pH 7.0 Ur Specific [place] 1.009 L Urine Protein Negative Urine Glucose (UA) Negative Urine Ketones Negative Urine Blood Negative Urine Nitrite Negative Urine Bilirubin Negative Urine Urobilinogen Negative Ur Leukocyte Esterase Negative RPR Titer 07/11/18 07:00 WBC RBC Hgb Hct MCV MCH MCHC RDW Plt Count MPV Sodium Potassium Chloride Carbon Dioxide Anion Gap BUN Creatinine Creat Clearance w eGFR Random Glucose Calcium Total Bilirubin AST ALT Alkaline Phosphatase Total Protein Albumin Urine Color Urine Appearance Urine pH Ur Specific [place] Urine Protein Urine Glucose (UA) Urine Ketones Urine Blood Urine Nitrite Urine Bilirubin Urine Urobilinogen Ur Leukocyte Esterase RPR Titer Nonreactive aaox3 ambulating no acute distress Assessment: 07/12/18 11:50 withdrawal sx Plan: continue detox increase fluids flonase inh ordered nicotine patch 21mcg ordered
[2018-07-12] MEDS: FLUTICASONE PROP 0.05% 16 GM NASAL SPRAY NS SCH (12:00)
[2018-07-12] MEDS: NICOTINE 21 MG/24 HOURS TOPICAL PATCH TD SCH (15:16)
[2018-07-12] MEDS: THIAMINE HCL 100 MG TABLET (FP) PO SCH (22:25)
[2018-07-12] MEDS: chlordiazePOXIDE 5 MG CAPSULE PO SCH (22:26)
[2018-07-12] MEDS: OLANZapine 10 MG TABLET PO SCH (22:26)
[2018-07-12] MEDS: ACETAMINOPHEN 325 MG TABLET (FP) PO PRN (22:27)
[2018-07-13] MEDS: PSEUDOEPHEDRINE HCL 30 MG TABLET PO PRN ×2 (01:32→15:44)
[2018-07-13] MEDS: guaiFENesin/D-METHORPHAN HB 10 ML UNIT-DOSE CUPS PO PRN (01:33)
[2018-07-13] MEDS: CLOTRIMAZOLE 10 MG TROCHE (FP) PO SCH ×5 (05:19→22:26)
[2018-07-13] MEDS: chlordiazePOXIDE 5 MG CAPSULE PO SCH ×3 (05:19→17:54)
[2018-07-13] MEDS: PRENATAL VITAMINS W/ FOLIC ACID TABLET (FP) PO SCH (10:18)
[2018-07-13] MEDS: FLUTICASONE PROP 0.05% 16 GM NASAL SPRAY NS SCH (10:18)
[2018-07-13] MEDS: ERYTHROMYCIN 0.5% OPHTHALMIC OINTMENT 3.5 GM TUBE OU SCH ×2 (10:19→22:26)
[2018-07-13] MEDS: GABAPENTIN 300 MG CAPSULE (FP) PO SCH ×2 (10:19→22:26)
[2018-07-13] MEDS: NICOTINE 21 MG/24 HOURS TOPICAL PATCH TD SCH (10:19)
--- NOTE | 2018-07-13 12:38 | PN ---
[facility] Progress Note (SOAP) Subjective: Generalized weakness and interrupted sleep Objective: 07/13/18 12:36 Vital Signs 07/13/18 07/13/18 06:00 09:39 Temperature 98.2 F 98.2 F Pulse Rate 90 105 H Respiratory 20 18 Rate Blood Pressure 144/71 127/74 Laboratory Last Values WBC 8.1 K/mm3 (4.0-10.0) 07/11/18 07:00 RBC 4.21 M/mm3 (3.60-5.2) 07/11/18 07:00 Hgb 12.5 GM/dL (10.7-15.3) 07/11/18 07:00 Hct 38.9 % (32.4-45.2) 07/11/18 07:00 MCV 92.4 fl (80-96) 07/11/18 07:00 MCH 29.8 pg (25.7-33.7) 07/11/18 07:00 MCHC 32.3 g/dl (32.0-36.0) 07/11/18 07:00 RDW 14.4 % (11.6-15.6) D 07/11/18 07:00 Plt Count 188 K/MM3 (134-434) 07/11/18 07:00 MPV 11.7 fl (7.5-11.1) H 07/11/18 07:00 Sodium 140 mmol/L (136-145) 07/11/18 07:00 Potassium 4.2 mmol/L (3.5-5.1) 07/11/18 07:00 Chloride 103 mmol/L (98-107) 07/11/18 07:00 Carbon Dioxide 28 mmol/L (21-32) 07/11/18 07:00 Anion Gap 9 MMOL/L (8-16) 07/11/18 07:00 BUN 14 mg/dL (7-18) 07/11/18 07:00 Creatinine 0.8 mg/dL (0.55-1.3) 07/11/18 07:00 Creat Clearance w eGFR > 60 (>60) 07/11/18 07:00 Random Glucose 110 mg/dL (74-106) H 07/11/18 07:00 Calcium 8.9 mg/dL (8.5-10.1) 07/11/18 07:00 Total Bilirubin 0.3 mg/dL (0.2-1) 07/11/18 07:00 AST 50 U/L (15-37) H 07/11/18 07:00 ALT 38 U/L (13-61) 07/11/18 07:00 Alkaline Phosphatase 74 U/L (45-117) 07/11/18 07:00 Total Protein 8.7 g/dl (6.4-8.2) H 07/11/18 07:00 Albumin 3.6 g/dl (3.4-5.0) 07/11/18 07:00 Urine Color Ltyellow 07/11/18 00:03 Urine Appearance Slcloudy 07/11/18 00:03 Urine pH 7.0 (5.0-8.0) 07/11/18 00:03 Ur Specific [place] 1.009 (1.010-1.035) L 07/11/18 00:03 Urine Protein Negative (NEGATIVE) 07/11/18 00:03 Urine Glucose (UA) Negative (NEGATIVE) 07/11/18 00:03 Urine Ketones Negative (NEGATIVE) 07/11/18 00:03 Urine Blood Negative (NEGATIVE) 07/11/18 00:03 Urine Nitrite Negative (NEGATIVE) 07/11/18 00:03 Urine Bilirubin Negative (<2.0 mg/dL) 07/11/18 00:03 Urine Urobilinogen Negative mg/dL (0.2-1.0) 07/11/18 00:03 Ur Leukocyte Esterase Negative (NEGATIVE) 07/11/18 00:03 RPR Titer Nonreactive (NONREACTIVE) 07/11/18 07:00 Labs noted Patient reports significant weight loss, requesting ensure Assessment: 07/13/18 12:37 Withdrawal sx Plan: Continue detox Add ensure to dietary regimen
[2018-07-13] MEDS ORDERED: SODIUM CHLORIDE NASAL SPRAY 44 ML BOTTLE NS PRN (15:45)
[2018-07-13] MEDS: MENTHOL/PHENOL 1 EACH UD MM PRN (15:47)
[2018-07-13] MEDS: MELATONIN 5 MG TABLETS PO PRN (22:26)
[2018-07-13] MEDS: THIAMINE HCL 100 MG TABLET (FP) PO SCH (22:26)
[2018-07-13] MEDS: chlordiazePOXIDE HCL 10 MG CAPSULE PO SCH (22:26)
[2018-07-13] MEDS: OLANZapine 10 MG TABLET PO SCH (22:26)
[2018-07-14] MEDS: chlordiazePOXIDE HCL 10 MG CAPSULE PO SCH ×2 (05:39→11:26)
[2018-07-14] MEDS: CLOTRIMAZOLE 10 MG TROCHE (FP) PO SCH ×2 (05:40→11:20)
[2018-07-14 06:25] VITALS: TEMP 98.4
--- NOTE | 2018-07-14 09:17 | DS ---
[facility] Detox Discharge Summary Admission Date: 07/10/18 Discharge Date: 07/07/18 - History Present History: Alcohol Dependence Additional Comments: 53 years old female admitted on 07/10/18 for alcohol withdrawal sx completed alcohol detox regimen tolerated well denies alcohol withdrawal sx alert oriented x 3 tolerated well aftercare [facility] - Physical Exam Results Vital Signs: Vital Signs Temperature 98.4 F 07/14/18 06:00 Pulse Rate 105 H 07/14/18 06:00 Respiratory Rate 18 07/14/18 06:00 Blood Pressure 128/72 07/14/18 06:00 O2 Sat by Pulse Oximetry (%) Pertinent Admission Physical Exam Findings: alcohol withdrawal sx Vital Signs Temperature 98.4 F 07/14/18 06:00 Pulse Rate 105 H 07/14/18 06:00 Respiratory Rate 18 07/14/18 06:00 Blood Pressure 128/72 07/14/18 06:00 O2 Sat by Pulse Oximetry (%) Laboratory Last Values WBC 8.1 K/mm3 (4.0-10.0) 07/11/18 07:00 RBC 4.21 M/mm3 (3.60-5.2) 07/11/18 07:00 Hgb 12.5 GM/dL (10.7-15.3) 07/11/18 07:00 Hct 38.9 % (32.4-45.2) 07/11/18 07:00 MCV 92.4 fl (80-96) 07/11/18 07:00 MCH 29.8 pg (25.7-33.7) 07/11/18 07:00 MCHC 32.3 g/dl (32.0-36.0) 07/11/18 07:00 RDW 14.4 % (11.6-15.6) D 07/11/18 07:00 Plt Count 188 K/MM3 (134-434) 07/11/18 07:00 MPV 11.7 fl (7.5-11.1) H 07/11/18 07:00 Sodium 140 mmol/L (136-145) 07/11/18 07:00 Potassium 4.2 mmol/L (3.5-5.1) 07/11/18 07:00 Chloride 103 mmol/L (98-107) 07/11/18 07:00 Carbon Dioxide 28 mmol/L (21-32) 07/11/18 07:00 Anion Gap 9 MMOL/L (8-16) 07/11/18 07:00 BUN 14 mg/dL (7-18) 07/11/18 07:00 Creatinine 0.8 mg/dL (0.55-1.3) 07/11/18 07:00 Creat Clearance w eGFR > 60 (>60) 07/11/18 07:00 Random Glucose 110 mg/dL (74-106) H 07/11/18 07:00 Calcium 8.9 mg/dL (8.5-10.1) 07/11/18 07:00 Total Bilirubin 0.3 mg/dL (0.2-1) 07/11/18 07:00 AST 50 U/L (15-37) H 07/11/18 07:00 ALT 38 U/L (13-61) 07/11/18 07:00 Alkaline Phosphatase 74 U/L (45-117) 07/11/18 07:00 Total Protein 8.7 g/dl (6.4-8.2) H 07/11/18 07:00 Albumin 3.6 g/dl (3.4-5.0) 07/11/18 07:00 Urine Color Ltyellow 07/11/18 00:03 Urine Appearance Slcloudy 07/11/18 00:03 Urine pH 7.0 (5.0-8.0) 07/11/18 00:[address] 1.009 (1.010-1.035) L 07/11/18 00:03 Urine Protein Negative (NEGATIVE) 07/11/18 00:03 Urine Glucose (UA) Negative (NEGATIVE) 07/11/18 00:03 Urine Ketones Negative (NEGATIVE) 07/11/18 00:03 Urine Blood Negative (NEGATIVE) 07/11/18 00:03 Urine Nitrite Negative (NEGATIVE) 07/11/18 00:03 Urine Bilirubin Negative (<2.0 mg/dL) 07/11/18 00:03 Urine Urobilinogen Negative mg/dL (0.2-1.0) 07/11/18 00:03 Ur Leukocyte Esterase Negative (NEGATIVE) 07/11/18 00:03 RPR Titer Nonreactive (NONREACTIVE) 07/11/18 07:00 lab noted - Treatment Hospital Course: Detox Protocol Followed, Detoxed Safely, Responded well, Discharged Condition Good, Rehab Referral Accepted Patient has Accepted a Rehab Referral to: [facility] - Medication Discharge Medications: Ambulatory Orders Gabapentin [Neurontin -] 300 mg PO BID 01/03/18 Emtricitab/Rilpivirine/Tenofov [Complera Tablet -] 1 each PO DAILY #30 tablet Olanzapine 10 mg PO HS #30 tablet 07/11/18 Albuterol Sulfate Inhaler - [Ventolin HFA Inhaler -] 2 puff IH Q4H PRN #1 inhaler 07/14/18 - Diagnosis (1) Alcohol dependence with uncomplicated withdrawal Current Visit: Yes Status: Acute (2) Asthma Current Visit: Yes Status: Chronic Qualifiers: Asthma severity: mild Asthma persistence: intermittent Asthma complication type: with status asthmaticus Qualified Code(s): J45.22 - Mild intermittent asthma with status asthmaticus (3) HIV disease Current Visit: Yes Status: Chronic (4) Nicotine dependence Current Visit: Yes Status: Acute Qualifiers: Nicotine product type: cigarettes Substance use status: in withdrawal Qualified Code(s): F17.213 - Nicotine dependence, cigarettes, with withdrawal (5) Substance induced mood disorder Current Visit: Yes Status: Suspected - AMA Did Patient Leave Against Medical Advice: No
[2018-07-14 10:18] VITALS: BP 117/52; PULSE 95
[2018-07-14] MEDS: FLUTICASONE PROP 0.05% 16 GM NASAL SPRAY NS SCH (11:20)
[2018-07-14] MEDS: ERYTHROMYCIN 0.5% OPHTHALMIC OINTMENT 3.5 GM TUBE OU SCH (11:21)
[2018-07-14] MEDS: PRENATAL VITAMINS W/ FOLIC ACID TABLET (FP) PO SCH (11:22)
[2018-07-14] MEDS: NICOTINE 21 MG/24 HOURS TOPICAL PATCH TD SCH (11:22)
[2018-07-14] MEDS: GABAPENTIN 300 MG CAPSULE (FP) PO SCH (11:23)
== END 2018-07-14 12:33 | disposition other institution (70) | DRG 774 ==
LOC: YASAS 14:35 → Y6N 17:35
PROC: HZ2ZZZZ Detoxification Services for Substance Abuse Treatment (ICD-10-PCS; principal; 2018-07-10)
DX: F10.230 Alcohol dependence with withdrawal, uncomplicated (principal); F14.20 Cocaine dependence, uncomplicated; F12.20 Cannabis dependence, uncomplicated; F17.213 Nicotine dependence, cigarettes, with withdrawal; F19.24 Other psychoactive substance dependence with psychoactive substance-induced mood disorder; F25.9 Schizoaffective disorder, unspecified; F31.9 Bipolar disorder, unspecified; B20 Human immunodeficiency virus [HIV] disease; B37.0 Candidal stomatitis; Z86.19 Personal history of other infectious and parasitic diseases; Z91.5 Personal history of self-harm
CPT/HCPCS: 36415; 80053; 81003; 85027; 86593; 93005; 93010

== ENCOUNTER 2018-07-14 12:50 | Inpatient (IN) | payer OTHER ==
--- NOTE | 2018-07-14 09:31 | HP ---
[facility] Rehab Assess/Revision - Admission History Admitted to Rehab from: [facility] [place] Date of Admission to Rehab: 07/14/18 - Findings Detox History & Physical reviewed: Yes Concur with findings: Yes Comments/Additional Findings: transferred from detox to rehab admission as per protocol Inpatient Rehab Admission - Initial Determination Are CD services needed?: Yes Free of communicable disease: Yes Not in need of hospitalization: Yes - Rehab Admission Criteria Previous failed treatment: Yes Poor recovery environment: Yes Comorbidities: Yes Lacks judgement: No Patient is meeting Inpatient Rehab admission criteria:: Yes
[~2018-07-14 12:50] MED LIST: ALBUTEROL SO4 8 GM HFA INHALER IH PRN; LOPERAMIDE HCL 2 MG CAPSULE PO PRN; MAG HYDROX/AL HYDROX/SIMETH 30 ML UNIT-DOSE CUP PO PRN; MAGNESIUM CITRATE 300 ML BOTTLE PO PRN; MAGNESIUM HYDROX 2400MG/30ML ORAL SUSPENSION 30 ML CUP PO PRN; MENTHOL/PHENOL 1 EACH UD MM PRN; NICOTINE 14 MG/24 HOURS TOPICAL PATCH TD PRN; NICOTINE POLACRILEX 2 MG GUM BUC PRN; P-EPHED 60MG/TRIPROLIDI 2.5MG TABLET PO PRN; guaiFENesin/D-METHORPHAN HB 10 ML UNIT-DOSE CUPS PO PRN
[2018-07-14 13:14] VITALS: BMI 26.4
[2018-07-14] MEDS: ERYTHROMYCIN 0.5% OPHTHALMIC OINTMENT 3.5 GM TUBE OU SCH ×2 (14:22→22:27)
[2018-07-14] MEDS: GABAPENTIN 300 MG CAPSULE (FP) PO SCH ×2 (14:23→21:29)
[2018-07-14] MEDS: PRENATAL VITAMINS W/ FOLIC ACID TABLET (FP) PO SCH (14:23)
[2018-07-14] MEDS: CLOTRIMAZOLE 10 MG TROCHE (FP) PO SCH ×3 (14:37→22:28)
--- NOTE | 2018-07-14 18:17 | PN ---
BARBARA Progress Note Note: Psychiatrist director of teacher education Note Called by nursing staff to order medication for newly admitted patient from detox. Medication reconciliation done and [id number] mg po HS ordered
[2018-07-14] MEDS: THIAMINE HCL 100 MG TABLET (FP) PO SCH (21:28)
[2018-07-14] MEDS: EMTRICITAB/RILPIVIRINE/TENOFOV 1 EACH TABLET PO SCH (21:29)
[2018-07-14] MEDS: OLANZapine 10 MG TABLET PO SCH (21:29)
[2018-07-14] MEDS ORDERED: MELATONIN 5 MG TABLETS PO PRN (22:00)
[2018-07-15] MEDS: hydrOXYzine PAMOATE 25 MG CAPSULE (FP) PO PRN ×2 (03:33→21:34)
[2018-07-15] MEDS: CLOTRIMAZOLE 10 MG TROCHE (FP) PO SCH ×5 (06:06→21:33)
[2018-07-15] MEDS ORDERED: PT OWN MED DRAWER 7, Y5N ONE (08:56)
[2018-07-15] MEDS: GABAPENTIN 300 MG CAPSULE (FP) PO SCH ×2 (10:35→21:34)
[2018-07-15] MEDS: ERYTHROMYCIN 0.5% OPHTHALMIC OINTMENT 3.5 GM TUBE OU SCH ×2 (10:35→21:36)
[2018-07-15] MEDS: PRENATAL VITAMINS W/ FOLIC ACID TABLET (FP) PO SCH (10:35)
[2018-07-15] MEDS: EMTRICITAB/RILPIVIRINE/TENOFOV 1 EACH TABLET PO SCH (10:35)
[2018-07-15] MEDS: FLUTICASONE PROP 0.05% 16 GM NASAL SPRAY NS SCH (10:36)
[2018-07-15] MEDS: IBUPROFEN 400 MG TABLET (FP) PO PRN ×2 (15:15→21:34)
[2018-07-15] MEDS: ACETAMINOPHEN 325 MG TABLET (FP) PO PRN (17:46)
[2018-07-15] MEDS: OLANZapine 10 MG TABLET PO SCH (21:34)
[2018-07-15] MEDS: THIAMINE HCL 100 MG TABLET (FP) PO SCH (21:34)
[2018-07-16] MEDS: ACETAMINOPHEN 325 MG TABLET (FP) PO PRN ×3 (02:54→21:21)
[2018-07-16] MEDS: hydrOXYzine PAMOATE 25 MG CAPSULE (FP) PO PRN ×2 (02:55→10:00)
[2018-07-16] MEDS: CLOTRIMAZOLE 10 MG TROCHE (FP) PO SCH ×5 (06:06→21:20)
[2018-07-16] MEDS: EMTRICITAB/RILPIVIRINE/TENOFOV 1 EACH TABLET PO SCH (10:00)
[2018-07-16] MEDS: FLUTICASONE PROP 0.05% 16 GM NASAL SPRAY NS SCH (10:00)
[2018-07-16] MEDS: PRENATAL VITAMINS W/ FOLIC ACID TABLET (FP) PO SCH (10:00)
[2018-07-16] MEDS: GABAPENTIN 300 MG CAPSULE (FP) PO SCH ×2 (10:00→21:20)
[2018-07-16] MEDS: ERYTHROMYCIN 0.5% OPHTHALMIC OINTMENT 3.5 GM TUBE OU SCH ×2 (10:01→21:20)
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
[2018-07-16] MEDS: OLANZapine 10 MG TABLET PO SCH (21:20)
[2018-07-16] MEDS: THIAMINE HCL 100 MG TABLET (FP) PO SCH (21:20)
[2018-07-16] MEDS ORDERED: SUVOREXANT 10 MG TABLET PO PRN (22:00)
[2018-07-17] MEDS: ACETAMINOPHEN 325 MG TABLET (FP) PO PRN (01:51)
[2018-07-17] MEDS: CLOTRIMAZOLE 10 MG TROCHE (FP) PO SCH ×5 (05:53→21:38)
[2018-07-17] MEDS: GABAPENTIN 300 MG CAPSULE (FP) PO SCH ×2 (10:08→21:38)
[2018-07-17] MEDS: ERYTHROMYCIN 0.5% OPHTHALMIC OINTMENT 3.5 GM TUBE OU SCH ×2 (10:08→21:38)
[2018-07-17] MEDS: EMTRICITAB/RILPIVIRINE/TENOFOV 1 EACH TABLET PO SCH (10:08)
[2018-07-17] MEDS: hydrOXYzine PAMOATE 50 MG CAPSULE (FP) PO PRN ×2 (10:08→21:38)
[2018-07-17] MEDS: PRENATAL VITAMINS W/ FOLIC ACID TABLET (FP) PO SCH (10:08)
[2018-07-17] MEDS: IBUPROFEN 400 MG TABLET (FP) PO PRN (10:09)
[2018-07-17] MEDS: FLUTICASONE PROP 0.05% 16 GM NASAL SPRAY NS SCH (10:09)
[2018-07-17] MEDS: OLANZapine 10 MG TABLET PO SCH (21:38)
[2018-07-17] MEDS: THIAMINE HCL 100 MG TABLET (FP) PO SCH (21:38)
[2018-07-17] MEDS: SUVOREXANT 10 MG TABLET PO PRN (21:39)
[2018-07-18] MEDS: hydrOXYzine PAMOATE 50 MG CAPSULE (FP) PO PRN ×2 (03:19→21:47)
[2018-07-18] MEDS: CLOTRIMAZOLE 10 MG TROCHE (FP) PO SCH ×5 (06:52→21:48)
[2018-07-18] MEDS ORDERED: PT OWN MED DRAWER 7, Y5N ONE (08:47)
[2018-07-18] MEDS: GABAPENTIN 300 MG CAPSULE (FP) PO SCH ×2 (10:00→21:47)
[2018-07-18] MEDS: PRENATAL VITAMINS W/ FOLIC ACID TABLET (FP) PO SCH (10:00)
[2018-07-18] MEDS: EMTRICITAB/RILPIVIRINE/TENOFOV 1 EACH TABLET PO SCH (10:00)
[2018-07-18] MEDS: FLUTICASONE PROP 0.05% 16 GM NASAL SPRAY NS SCH (10:00)
[2018-07-18] MEDS: ERYTHROMYCIN 0.5% OPHTHALMIC OINTMENT 3.5 GM TUBE OU SCH ×2 (10:00→21:48)
[2018-07-18] MEDS: OLANZapine 10 MG TABLET PO SCH (21:47)
[2018-07-18] MEDS: SUVOREXANT 10 MG TABLET PO PRN (21:47)
[2018-07-18] MEDS: THIAMINE HCL 100 MG TABLET (FP) PO SCH (21:47)
[2018-07-19] MEDS: CLOTRIMAZOLE 10 MG TROCHE (FP) PO SCH ×5 (06:38→21:04)
[2018-07-19] MEDS: PRENATAL VITAMINS W/ FOLIC ACID TABLET (FP) PO SCH (10:11)
[2018-07-19] MEDS: hydrOXYzine PAMOATE 50 MG CAPSULE (FP) PO PRN ×2 (10:11→21:03)
[2018-07-19] MEDS: FLUTICASONE PROP 0.05% 16 GM NASAL SPRAY NS SCH (10:11)
[2018-07-19] MEDS: GABAPENTIN 300 MG CAPSULE (FP) PO SCH ×2 (10:11→21:03)
[2018-07-19] MEDS: ERYTHROMYCIN 0.5% OPHTHALMIC OINTMENT 3.5 GM TUBE OU SCH ×2 (10:11→21:04)
[2018-07-19] MEDS: EMTRICITAB/RILPIVIRINE/TENOFOV 1 EACH TABLET PO SCH (10:12)
--- NOTE | 2018-07-19 12:54 | PN ---
S Progress Note (SOAP) Subjective: C/o increase urination w/o burning or blood. Denies vaginal discharge. States has oral thrush and lozenges are not working. Objective: A&O x3. White oral lesions on tongue and pharynx. Vital Signs - 24 hr 07/19/18 07/19/18 03:30 07:06 Temperature 97.8 F Pulse Rate 101 H Respiratory 16 18 Rate Blood Pressure 127/78 Assessment: Early alcohol remission. HIV+ Oral candidiasis. Plan: Urine culture. Start difulcan. Encourage f/u w/ MAINTENANCE AND REPA[employer] WORKER upon discharge.
[2018-07-19] MEDS: FLUCONAZOLE 100 MG TABLET (UD) PO SCH (17:29)
[2018-07-19] MEDS: ACETAMINOPHEN 325 MG TABLET (FP) PO PRN (21:02)
[2018-07-19] MEDS: OLANZapine 10 MG TABLET PO SCH (21:03)
[2018-07-19] MEDS: THIAMINE HCL 100 MG TABLET (FP) PO SCH (21:03)
[2018-07-19] MEDS: SUVOREXANT 10 MG TABLET PO PRN (21:03)
[2018-07-20] MEDS: CLOTRIMAZOLE 10 MG TROCHE (FP) PO SCH ×5 (06:19→21:21)
[2018-07-20] MEDS: ACETAMINOPHEN 325 MG TABLET (FP) PO PRN (07:01)
[2018-07-20] MEDS: hydrOXYzine PAMOATE 50 MG CAPSULE (FP) PO PRN ×4 (07:01→21:20)
[2018-07-20] MEDS: EMTRICITAB/RILPIVIRINE/TENOFOV 1 EACH TABLET PO SCH (10:10)
[2018-07-20] MEDS: GABAPENTIN 300 MG CAPSULE (FP) PO SCH ×2 (10:10→21:20)
[2018-07-20] MEDS: PRENATAL VITAMINS W/ FOLIC ACID TABLET (FP) PO SCH (10:10)
[2018-07-20] MEDS: FLUCONAZOLE 100 MG TABLET (UD) PO SCH (10:10)
[2018-07-20] MEDS: FLUTICASONE PROP 0.05% 16 GM NASAL SPRAY NS SCH (10:10)
[2018-07-20] MEDS: ERYTHROMYCIN 0.5% OPHTHALMIC OINTMENT 3.5 GM TUBE OU SCH ×2 (10:11→23:00)
[2018-07-20] MEDS ORDERED: PT OWN MED DRAWER 7, Y5N ONE (14:12)
--- NOTE | 2018-07-20 16:58 | PN ---
[facility] Progress Note Note: Psychiatry Attending's note (coverage) : Called to renew belsomra. Medications revisited. Dose confirmed. Drug is well tolerated. No side effects. Belsomra 10 mg po prn. Resumed.
[2018-07-20] MEDS: THIAMINE HCL 100 MG TABLET (FP) PO SCH (21:20)
[2018-07-20] MEDS: OLANZapine 10 MG TABLET PO SCH (21:20)
[2018-07-21] MEDS: hydrOXYzine PAMOATE 50 MG CAPSULE (FP) PO PRN (01:48)
[2018-07-21] MEDS: CLOTRIMAZOLE 10 MG TROCHE (FP) PO SCH ×5 (05:55→21:59)
[2018-07-21] MEDS ORDERED: PT OWN MED DRAWER 7, Y5N ONE (09:26)
[2018-07-21] MEDS: PRENATAL VITAMINS W/ FOLIC ACID TABLET (FP) PO SCH (10:21)
[2018-07-21] MEDS: GABAPENTIN 300 MG CAPSULE (FP) PO SCH ×2 (10:21→21:57)
[2018-07-21] MEDS: FLUCONAZOLE 100 MG TABLET (UD) PO SCH (10:21)
[2018-07-21] MEDS: EMTRICITAB/RILPIVIRINE/TENOFOV 1 EACH TABLET PO SCH (10:22)
[2018-07-21] MEDS: ERYTHROMYCIN 0.5% OPHTHALMIC OINTMENT 3.5 GM TUBE OU SCH ×2 (10:22→21:57)
[2018-07-21] MEDS: FLUTICASONE PROP 0.05% 16 GM NASAL SPRAY NS SCH (10:22)
[2018-07-21] MEDS: SUVOREXANT 10 MG TABLET PO PRN (21:57)
[2018-07-21] MEDS: OLANZapine 10 MG TABLET PO SCH (21:57)
[2018-07-21] MEDS: THIAMINE HCL 100 MG TABLET (FP) PO SCH (21:57)
[2018-07-22] MEDS: hydrOXYzine PAMOATE 50 MG CAPSULE (FP) PO PRN ×2 (02:30→17:35)
[2018-07-22] MEDS: CLOTRIMAZOLE 10 MG TROCHE (FP) PO SCH ×5 (06:08→23:01)
[2018-07-22] MEDS ORDERED: PT OWN MED DRAWER 7, Y5N ONE (09:13)
[2018-07-22] MEDS: GABAPENTIN 300 MG CAPSULE (FP) PO SCH ×2 (10:44→23:01)
[2018-07-22] MEDS: PRENATAL VITAMINS W/ FOLIC ACID TABLET (FP) PO SCH (10:44)
[2018-07-22] MEDS: FLUCONAZOLE 100 MG TABLET (UD) PO SCH (10:44)
[2018-07-22] MEDS: EMTRICITAB/RILPIVIRINE/TENOFOV 1 EACH TABLET PO SCH (10:45)
[2018-07-22] MEDS: FLUTICASONE PROP 0.05% 16 GM NASAL SPRAY NS SCH (10:45)
[2018-07-22] MEDS: ERYTHROMYCIN 0.5% OPHTHALMIC OINTMENT 3.5 GM TUBE OU SCH ×2 (10:46→23:01)
[2018-07-22] MEDS: OLANZapine 10 MG TABLET PO SCH (23:02)
[2018-07-22] MEDS: THIAMINE HCL 100 MG TABLET (FP) PO SCH (23:02)
[2018-07-23] MEDS: SUVOREXANT 10 MG TABLET PO PRN (00:21)
[2018-07-23] MEDS: CLOTRIMAZOLE 10 MG TROCHE (FP) PO SCH ×5 (06:48→22:21)
--- NOTE | 2018-07-23 10:21 | PN ---
[facility] Progress Note Note: Psychiatric nurse practitioner note: Belsomra 10mg renewed X7 days. Verbal consent given.
[2018-07-23] MEDS: GABAPENTIN 300 MG CAPSULE (FP) PO SCH ×2 (10:23→21:20)
[2018-07-23] MEDS: EMTRICITAB/RILPIVIRINE/TENOFOV 1 EACH TABLET PO SCH (10:23)
[2018-07-23] MEDS: PRENATAL VITAMINS W/ FOLIC ACID TABLET (FP) PO SCH (10:23)
[2018-07-23] MEDS: ERYTHROMYCIN 0.5% OPHTHALMIC OINTMENT 3.5 GM TUBE OU SCH ×2 (10:23→22:20)
[2018-07-23] MEDS: FLUCONAZOLE 100 MG TABLET (UD) PO SCH (10:23)
[2018-07-23] MEDS: hydrOXYzine PAMOATE 50 MG CAPSULE (FP) PO PRN ×2 (10:24→21:20)
[2018-07-23] MEDS: FLUTICASONE PROP 0.05% 16 GM NASAL SPRAY NS SCH (10:24)
[2018-07-23] MEDS: ACETAMINOPHEN 325 MG TABLET (FP) PO PRN ×2 (15:15→21:21)
[2018-07-23] MEDS: IBUPROFEN 400 MG TABLET (FP) PO PRN (17:19)
[2018-07-23] MEDS: OLANZapine 10 MG TABLET PO SCH (21:20)
[2018-07-23] MEDS: THIAMINE HCL 100 MG TABLET (FP) PO SCH (21:20)
[2018-07-23] MEDS ORDERED: SUVOREXANT 10 MG TABLET PO PRN (22:00)
[2018-07-24] MEDS: hydrOXYzine PAMOATE 50 MG CAPSULE (FP) PO PRN ×2 (01:06→10:42)
[2018-07-24] MEDS: ACETAMINOPHEN 325 MG TABLET (FP) PO PRN (01:06)
[2018-07-24] MEDS: CLOTRIMAZOLE 10 MG TROCHE (FP) PO SCH ×2 (06:25→10:42)
[2018-07-24 07:00] VITALS: BP 115/72; PULSE 96; TEMP 98.1
--- NOTE | 2018-07-24 10:25 | PN ---
Psychiatric Progress Note Vital Signs: Vital Signs Period Temp Pulse Resp BP Sys/Lopez Pulse Ox Last 24 Hr 98.1 F 96 20-20 115/72 Date of Session: 07/24/18 Current Medications: Active Medications Generic Name Dose Route Start Last Admin Trade Name Freq PRN Reason Stop Dose Admin Acetaminophen 650 mg 07/14/18 09:30 07/24/18 01:06 Tylenol - PO 650 mg Q4H PRN Administration FEVER Al Hydroxide/Mg Hydroxide 30 ml 07/14/18 09:30 Mylanta Oral Suspension - PO Q6H PRN DYSPEPSIA Albuterol Sulfate 2 puff 07/14/18 09:41 Ventolin Hfa Inhaler - IH Q4H PRN ASTHMA Clotrimazole 10 mg 07/14/18 14:00 07/24/18 06:25 Mycelex Jaime's - PO Not Given 5XD JAKE Emtricitabine/Rilpivirine/Tenofovir 1 each 07/14/18 10:00 07/23/18 10:23 Complera - PO 1 each DAILY JAKE Administration Erythromycin 1 applic 07/14/18 10:00 07/23/18 22:20 Erythromycin 0.5% Eye Ointment OU Not Given BID JAKE Eucalyptus/Menthol/Phenol/Sorbitol 1 each 07/14/18 09:30 07/23/18 10:26 Cepastat Lozenge - MM 1 each Q4H PRN Administration SORE THROAT Fluconazole 100 mg 07/19/18 13:45 07/23/18 10:23 Diflucan - PO 07/24/18 13:44 100 mg DAILY JAKE Administration Fluticasone Propionate 1 spray 07/15/18 10:00 07/23/18 10:24 Flonase - NS 1 spray DAILY JAKE Administration Gabapentin 300 mg 07/14/18 10:00 07/23/18 21:20 Neurontin - PO 300 mg BID JAKE Administration Guaifenesin 10 ml 07/14/18 09:30 Robitussin Dm - PO Q6H PRN COUGH Hydroxyzine Pamoate 50 mg 07/16/18 17:42 07/24/18 01:06 Vistaril - PO 50 mg Q4H PRN Administration ANXIETY Ibuprofen 400 mg 07/14/18 09:30 07/23/18 17:19 Motrin - PO 400 mg Q6H PRN Administration Pain Level 4-6 Loperamide HCl 4 mg 07/14/18 09:30 Imodium - PO Q6H PRN DIARRHEA Magnesium Citrate 300 ml 07/14/18 09:30 Citroma - PO Q48H PRN CONSTIPATION Magnesium Hydroxide 30 ml 07/14/18 09:30 07/19/18 01:46 Milk Of Magnesia - PO 30 ml DAILY PRN Administration CONSTIPATION Nicotine 14 mg 07/14/18 09:30 Nicoderm Patch - TD DAILY PRN WITHDRAWAL(CONT SUBST) Nicotine Polacrilex 2 mg 07/14/18 09:30 Nicorette Gum - BUC Q2H PRN NICOTINE REPLACEMENT RX Olanzapine 10 mg 07/14/18 22:00 07/23/18 21:20 Zyprexa - PO 10 mg HS JAKE Administration Multivit/Folic Acid/Iron 1 tab 07/14/18 10:00 07/23/18 10:23 Vitamins (Sjr) - PO 1 tab DAILY JAKE Administration Pseudoephedrine/Triprolidine 1 combo 07/14/18 09:30 Actifed - PO TID PRN NASAL CONGESTION Suvorexant 10 mg 07/23/18 22:00 07/24/18 01:05 Belsomra PO 07/26/18 21:59 10 mg HS PRN Administration INSOMNIA Thiamine HCl 100 mg 07/14/18 22:00 07/23/18 21:20 Vitamin B1 - PO 100 mg HS JAKE Administration Provider note:: [facility]
[2018-07-24] MEDS: PRENATAL VITAMINS W/ FOLIC ACID TABLET (FP) PO SCH (10:41)
[2018-07-24] MEDS: EMTRICITAB/RILPIVIRINE/TENOFOV 1 EACH TABLET PO SCH (10:41)
[2018-07-24] MEDS: FLUCONAZOLE 100 MG TABLET (UD) PO SCH (10:41)
[2018-07-24] MEDS: GABAPENTIN 300 MG CAPSULE (FP) PO SCH (10:42)
[2018-07-24] MEDS: FLUTICASONE PROP 0.05% 16 GM NASAL SPRAY NS SCH (10:42)
[2018-07-24] MEDS: ERYTHROMYCIN 0.5% OPHTHALMIC OINTMENT 3.5 GM TUBE OU SCH (10:42)
--- NOTE | 2018-07-24 23:25 | PN ---
[facility] Progress Note Note: Pt completed rehab and discharged today.
== END 2018-07-24 11:25 | disposition home or self-care (01) | DRG 772 ==
LOC: YASAS 12:50 → Y3W 12:51
PROVIDERS: ADMIT Psychiatry & Neurology Psychiatry; ATTEND Psychiatry & Neurology Psychiatry
PROC: HZ42ZZZ Group Counseling for Substance Abuse Treatment, Cognitive-Behavioral (ICD-10-PCS; principal; 2018-07-14)
DX: F10.20 Alcohol dependence, uncomplicated (principal); F14.20 Cocaine dependence, uncomplicated; F12.20 Cannabis dependence, uncomplicated; F17.213 Nicotine dependence, cigarettes, with withdrawal; F25.9 Schizoaffective disorder, unspecified; B20 Human immunodeficiency virus [HIV] disease; B37.0 Candidal stomatitis; J45.22 Mild intermittent asthma with status asthmaticus; D64.9 Anemia, unspecified
CPT/HCPCS: 87086